=== PATIENT | male | born 1940 | race Caucasian/White ===

== ENCOUNTER 2017-04-16 21:26 | Inpatient (IN) | payer MEDICARE, OTHER ==
[2017-04-16] MEDS ORDERED: Haloperidol Lactate 5 mg/mL 1mL Vial IVP ONE (21:35)
[2017-04-16] MEDS ORDERED: Haloperidol Lactate 5 mg/mL 1mL Vial IM STA (21:48)
[2017-04-16] MEDS ORDERED: Haloperidol Lactate 5 mg/mL 1mL Vial ONE (21:51)
--- NOTE | 2017-04-16 21:55 | ED Physician Chart ---
Chief Complaint/HPI - Patient Information Date Seen:: 04/16/17 Time Seen:: 21:35 Chief Complaint:: COMBATIVE History of Present Illness:: THIS IS A RETIREMENT PATIENT THAT WAS SENT FROM THE RETIREMENT FOR EVALUATION AND TREATMENT BECAUSE OF HIS COMBATIVE ACTIVITY. Allergies:: Allergies Allergy/AdvReac Type Severity Reaction Status Date / Time No Known Allergies Allergy Verified 04/16/17 21:29 Vitals:: Vital Signs - 8 hr 04/16/17 21:29 Temp 97.6 F HR 72 RR 18 BP 117/68 O2 Sat % 94 Historian:: EMS, Medical Records Review:: Nurse's Note Reviewed, Transfer documents Reviewed, Patient unable to respond Review of Systems - Review of Systems General/Constitutional: No fever, No chills, No weight loss, No weakness, No diaphoresis, No edema, No loss of appetite Skin: No skin lesions, No rash, No bruising Head: No headache, No light-headedness Eyes: No loss of vision, No pain, No diplopia ENT: No earache, No nasal drainage, No sore throat, No tinnitus Neck: No neck pain, No swelling, No thyromegaly, No stiffness, No mass noted Cardio Vascular: No chest pain, No palpitations, No PND, No orthopnea, No edema Pulmonary: No SOB, No cough, No sputum, No wheezing GI: No nausea, No vomiting, No diarrhea, No pain, No melena, No hematochezia, No constipation, No hematemesis G/U: No dysuria, No frequency, No hematuria Musculoskeletal: No bone or joint pain, No back pain, No muscle pain Endocrine: No polyuria, No polydipsia Psychiatric: No prior psych history, No depression, No anxiety, No suicidal ideation Hematopoietic: No bruising, No lymphadenopathy Allergic/Immuno: No urticaria, No angioedema Neurological: No syncope, No focal symptoms, No weakness, No paresthesia, No headache, No seizure, No dizziness, No confusion, No vertigo Past Medical History - Past Medical History Obtainable: No Past Medical History: HTN, Arthritis, Dementia Family History: None Social History: Non Smoker, No Alcohol, No Drug Use, Single, Care Facility Surgical History: None Psychiatricy History: Schizophrenia, Dementia Medication: Reviewed Family Medical History - Family Member Mother History Unknown: Yes Physical Exam - Physical Examination General/Constitutional: Awake, Well-developed, well-nourished, Alert, No distress, GCS 15, Non-toxic appearing, Ambulatory Other Gen/Cons comments:: THIS PATIENT IS CONFUSED AND COMBATIVE Head: Atraumatic Eyes: Lids, conjuctiva normal, PERRL, EOMI Skin: Nl inspection, No rash, No skin lesions, No ecchymosis, Well hydrated, No lymphadenopathy ENMT: External ears, nose nl, Nasal exam nl, Lips, teeth, gums nl Neck: Nontender, Full ROM w/o pain, No JVD, No nuchal rigidity, No bruit, No mass, No stridor Respiratory: Nl effort/Exclusion, Clear to Auscultation, No Wheeze/Rhonchi/Rales Cardio Vascular: RRR, No murmur, gallop, rubs, NL S1 S2 GI: No tenderness/rebounding/guarding, No organomegaly, No hernia, Normal BS's, Nondistended, No mass/bruits, No McBurney tenderness : No CVA tenderness Extremities: No tenderness or effusion, Full ROM, normal strength in all extremities, No edema, Normal digits & nails Neuro/Psych: Alert/oriented, DTR's symmetric, Normal sensory exam, Normal motor strength, Judgement/insight normal, Mood normal, Normal gait, No focal deficits Misc: normal gait, Normal back, No paraspinal tenderness Labs/Radiology/EKG Results - Lab Results Results: Abnormal Lab Results 04/16/17 04/16/17 04/16/17 21:50 21:50 21:50 WBC 9.2 RBC 4.97 Hgb 16.3 Hct 48.7 MCV 98.0 MCH 32.8 H MCHC Differential 33.4 RDW 12.9 Plt Count 177 MPV 8.7 Neutrophils (Manual) 40 Lymphocytes 42 Monocytes 10 Eosinophils 6 H Basophils 2 Platelet Estimate ADEQUATE Troponin I 0.01 Triglycerides 187 H Cholesterol 136 LDL Cholesterol Direct 93 HDL Cholesterol 34 Valproic Acid 04/16/17 21:50 WBC RBC Hgb Hct MCV MCH MCHC Differential RDW Plt Count MPV Neutrophils (Manual) Lymphocytes Monocytes Eosinophils Basophils Platelet Estimate Troponin I Triglycerides Cholesterol LDL Cholesterol Direct HDL Cholesterol Valproic Acid 24.0 L - EKG Interpretations EKG Time:: 22:21 Rate & Rhythm: 69 SINUS [place]: LEFT Assessment - Assessment General Assessment: PSYCHOSIS ED Septic Shock - . Is Septic Shock (SBP<90, OR Lactate>4 mmol\L) present?: No - <6hrs of presentation: Vital Signs: Vital Signs - 8 hr 04/16/17 21:29 Temp 97.6 F HR 72 RR 18 BP 117/68 O2 Sat % 94 Reassessment (Disposition) - Reassessment Reassessment Condition:: Unchanged - Diagnosis Diagnosis:: LOW VALPROIC ACID LEVEL DEHYDRATION PSYCHOSIS - Patient Disposition Discharge/Transfer:: Acute Care w/in this hosp Admitting Medical Physician:: Hiram De Jesus Admitting Psych Physician:: Christiano Harper Condition at Disposition:: Unchanged ED Discharge Plan - Patient Disposition Admit/Discharge/Transfer: Acute Care w/in this hosp Condition at Disposition: Unchanged
[2017-04-16 21:59] LABS: HEMATOCRIT 48.7 % (39.0-49.0); HEMOGLOBIN 16.3 gm/dL (12.6-17.4); MEAN CORPUSCULAR HEMOGLOBIN 32.8 pg (27.0-31.0); MEAN CORPUSCULAR HGB CONC 33.4 pg (28.0-36.0); MEAN PLATELET VOLUME 8.7 fl; PLATELET COUNT 177 Th/cmm (150-400); RED BLOOD COUNT 4.97 Mil/cmm (3.80-5.80); RED CELL DISTRIBUTION WIDTH 12.9 % (11.5-20.0); WHITE BLOOD COUNT 9.2 Th/cmm (4.8-10.8)
[2017-04-16 22:19] LABS: CHOLESTEROL 136 mg/dL (<200); TRIGLYCERIDES 187 mg/dL (<150)
[2017-04-16 22:21] LABS: BASOPHIL 2 % (0-3); EOSINOPHIL 6 % (0-5); NEUTROPHILS 40 % (40-80); PLATELET ESTIMATE ADEQUATE (NORMAL); TOTAL CELLS COUNTED 100
[2017-04-16 22:35] LABS: ALB/GLOB RATIO 1.4 (1.0-1.8); ALKALINE PHOSPHATASE 75 U/L (34-104); ANION GAP 14.8 (7.0-16.0); BILIRUBIN,TOTAL 0.4 mg/dL (0.3-1.0); BUN - UREA NITROGEN 16 mg/dL (7-25); BUN/CREATININE RATIO 22.9; CALCIUM SERUM 9.2 mg/dL (8.6-10.3); CARBON DIOXIDE 21.8 mEq/L (21.0-31.0); CHLORIDE 109 mEq/L (98-107); CREATININE - SERUM 0.7 mg/dL (0.7-1.3); GLUCOSE 121 mg/dL (70-105); POTASSIUM SERUM 4.6 mEq/L (3.5-5.1); SGOT 20 U/L (13-39); SGPT/ALT 25 U/L (7-52); SODIUM SERUM 141 mEq/L (136-145)
[2017-04-17] MEDS ORDERED: Pneumococcal Vaccine 0.5 mL Vial IM ONE (03:35)
--- NOTE | 2017-04-17 11:09 | Diagnostic Imaging Report ---
Portable chest x-ray HISTORY: Shortness of breath There is marked cardiomegaly. Atherosclerotic calcination seen in the aorta. No acute focal pulmonary processes. Surgical changes seen within the cervical spine. Arthritic changes noted about the shoulder regions. IMPRESSION: 1. No acute pulmonary processes 2. Cardiomegaly with atherosclerotic vascular changes
[2017-04-17] MEDS ORDERED: Fleet Enema 135 mL RC PRN (12:16)
[2017-04-17] MEDS ORDERED: Magnesium Hydroxide (MOM) 30 mL UDC PO PRN (12:16)
[2017-04-17] MEDS ORDERED: Magnesium Hydroxide (MOM) 30 mL UDC PO SCH (14:00)
[2017-04-18] MEDS ORDERED: POLYETHYLENE GLYCOL 3350 17 GM PACK PO SCH (09:00)
[2017-04-18] MEDS ORDERED: Non-Formulary Item 1 EA (Mirabegron [Myrbetriq] 25 MG) PO SCH (09:00)
== END 2017-04-17 17:32 | DRG 641 ==
LOC: ER 21:26 → MSI 23:00
PROVIDERS: ADMIT Family Medicine; ATTEND Family Medicine
PROC: 3E0234Z Introduction of Serum, Toxoid and Vaccine into Muscle, Percutaneous Approach (ICD-10-PCS; principal; 2017-04-17)
DX: E86.0 Dehydration (principal); F03.90 Unspecified dementia, unspecified severity, without behavioral disturbance, psychotic disturbance, mood disturbance, and anxiety; F20.9 Schizophrenia, unspecified; I10 Essential (primary) hypertension; M19.90 Unspecified osteoarthritis, unspecified site; F29 Unspecified psychosis not due to a substance or known physiological condition; Z23 Encounter for immunization
CPT/HCPCS: 36415-UA; 71010-TC; 80053-TC; 80061-TC; 80164-TC; 84443-TC; 84484-TC; 85007-TC; 85027-TC; 86592-TC; 93005; 96375; J1630; J2060; Z7610

== ENCOUNTER 2017-04-17 17:32 | Inpatient (IN) | payer MEDICARE, OTHER ==
[2017-04-17 18:45] VITALS: BP 118/87
[2017-04-17] MEDS ORDERED: Maalox 30 mL Cup PO PRN (19:55)
[2017-04-17] MEDS ORDERED: Magnesium Hydroxide (MOM) 30 mL UDC PO PRN (19:55)
[2017-04-17] MEDS ORDERED: Fleet Enema 135 mL RC PRN (20:22)
--- NOTE | 2017-04-17 22:04 | History and Physical ---
History of Present Illness - HPI Chief Complaint: ALTERED LEVEL OF CONSCIOUSNESS AND AGITATION. HPI: THE PATIENT IS A 76 YEAR OLD WITH PMH SIGNIFICANT FOR DEMENTIA.DJD,ADMITTED TO MEDICAL FLOOR WITH ACUTE AGITATION.THE PATIENT TRANSFERRED TO MENTAL HEALTH FOR MORE EVALUATION AND TREATMENT. Vital Signs: Last Vital Signs Temp 97.6 F 04/17/17 19:25 Pulse 100 04/17/17 19:25 Resp 20 04/17/17 19:25 BP 118/87 04/17/17 19:25 Pulse Ox 96 04/17/17 19:25 Past Medical History Pulmonary: Report: No Pertinent Hx [employer]: Report: Dementia GI: Report: No Pertinent Hx, Constipation Psych: Report: Anxiety, Psychosis Musculoskeletal: Report: No Pertinent Hx Rheumatologic: Report: No pertinent Hx Infectious Disease: Report: No Pertinent Hx Renal/: Report: Benign Prostatic Enlarg Endocrine: Report: No Pertinent Hx Dermatology: Report: No Pertinent Hx - Past Surgical History Past Surgical History: No pertinent Hx Family Medical History - Family Member Mother History Unknown: Yes Ethnicity: Unknown Living Status: Unknown Hx Family Cancer: (unknown) Hx Family Coronary Artery Disease: (unknown) Hx Family Congestive Heart Failure: (unknown) Hx Family Hypertension: (unknown) Hx Family Stroke: (unknown) Hx Family Diabetes: (unknown) Hx Family Seizures: (unknown) Hx Family Dementia: (unknown) Hx Family AIDS: (unknown) Hx Family COPD: (unknown) Hx Family Hepatitis: (unknown) Hx Family Psychiatric Problems: (unknown) Hx Family Tuberculosis: (unknown) Father History Unknown: Yes Ethnicity: Unknown Living Status: Unknown Hx Family Cancer: (unknown) Hx Family Coronary Artery Disease: (unknown) Hx Family Congestive Heart Failure: (unknown) Hx Family Hypertension: (unknown) Hx Family Stroke: (unknown) Hx Family Diabetes: (unknown) Hx Family Seizures: (unknown) Hx Family Dementia: (unknown) Hx Family AIDS: (unknown) Hx Family COPD: (unknown) Hx Family Hepatitis: (unknown) Hx Family Psychiatric Problems: (unknown) Hx Family Tuberculosis: (unknown) Social History Smoke: No Alcohol: None Drugs: None Lives: [facility] Domestic Violence: Negative Health Maintenance Health Maintenance: Influenza Vaccine, Pneumococcal Vaccine - Medications Home Medications: Home Medication Medication Instructions Recorded Type Acetaminophen [Tylenol] 650 mg PO Q4HR PRN 04/16/17 History Bisacodyl 10 mg RC DAILY PRN 04/16/17 History Cholecalciferol (Vit D3) [Vitamin 1,000 iu PO DAILY 04/16/17 History D3] Clonazepam [Klonopin] 0.5 mg PO BID 04/16/17 History Cyanocobalamin [Vitamin B12] 1,000 mcg PO DAILY 04/16/17 History Dextromethorphan/Quinidine 1 cap PO BID 04/16/17 History [Nuedexta 20mg-10mg] Docusate Sodium [Colace] 100 mg PO BID 04/16/17 History Dutasteride [Avodart] 0.5 mg PO DAILY 04/16/17 History Fleet Enema 1 dose RC Q48HR PRN 04/16/17 History Magnesium Hydroxide [Milk of 30 ml PO HS PRN 04/16/17 History Magnesia] Magnesium Hydroxide [Milk of 30 ml PO Q72HR 04/16/17 History Magnesia] Memantine [Namenda] 10 mg PO BID 04/16/17 History Mirabegron [Myrbetriq] 25 mg PO DAILY 04/16/17 History Polyethylene Glycol 3350 17 gm PO DAILY 04/16/17 History Sennosides [Teresa-Oscar] 8.6 mg PO HS 04/16/17 History Tamsulosin [Flomax] 0.4 mg PO DAILY 04/16/17 History Timolol 0.5% Ophth Soln [Timoptic 1 drop EACH EYE BID 04/16/17 History 0.5% Ophth Soln] Valproic Acid (As Sodium Salt) 250 mg PO DAILY 04/16/17 History [Depakene] Heparin Sodium [Heparin*] 5,000 units SUBQ Q12HR vial 04/17/17 Rx Lorazepam [Ativan] 0.5 mg PO Q4H PRN tab 04/17/17 Rx - Allergies Allergies/Adverse Reactions: Allergies Allergy/AdvReac Type Severity Reaction Status Date / Time No Known Allergies Allergy Verified 04/16/17 21:29 Review of Systems - Review of Systems Constitutional: Report: No Significant Eyes: Report: No Significant ENT: Report: No Significant Respiratory: Report: No Significant Cardiovascular: Report: No Significant Gastrointestinal: Report: Constipation Genitourinary: Report: No Significant Musculoskeletal: Report: No Significant Skin: Report: No Significant Neurological: Report: Confusion Physical Exam - Physical Exam Neck: Report: Within normal limits Cardiovascular Systems: Report: Regular, Rate and Rhythm, no murmurs noted Respiratory: Report: Breath Sounds are within normal limits, Clear to Auscultation of lung [place] Abdomen: Report: Non-tender to palpation Back: Report: Inspection of back is within normal limits. Extremities: Report: Non-tender to palpation. Skin: Report: Color of skin is within normal limits Neuro/Psych: Report: No motor deficit, No sensory deficit, No new focal deficits - Assessment Assessment: 1.BPH. 2.CONSTIPATION. 3.DEMENTIA. 4.AGITATION. - Plan Plan: CONTINUE ON CURRENT MEDICATION AND DIET..THE PATIENT IS CLEAR FOR ACTIVITY.
--- NOTE | 2017-04-18 00:56 | Admit Criteria Form ---
Admit Criteria Forms - Admit Criteria Diagnosis: PSYCHIATRIC DISORDERS (Place 'X' for any and all applicable criteria): Ongoing inpatient care may be needed for 1 or more of the following(1)(2)(3)(4)( 6)(7)(8): [ ]I. Danger to self or others not manageable at lower level of care. [ ]II. Grave disability (eg, inability to perform self care necessary at lower level of care) [X ]III. Agitation or inappropriate behavior interfering with care for primary condition (eg, attempting to discontinue lines or drains prematurely, unable to cooperate with respiratory care) [ ]IV. Severe disability or disorder indicated by ALL of the following: [ ]a) Severe behavioral health disorder-related symptoms or condition indicated by 1 or more of the following: [ ]i) Severe problem with cognition, memory, judgment, or impulse control [ ]ii) Severe clinical manifestations (eg, hallucinations, delusions, other acute psychotic symptoms, duane, extreme agitation or anxiety) [ ]b) Patient management at lower level of care is not feasible until acute intervention or modification is initiated. Extended stay beyond goal length of stay for the primary condition may be needed until ALLof the following are present(1)(2)(3)(4)(722)(23): [ ]a) Danger to self or others is absent or manageable at lower level of care [ ]b) Behavior crisis management, including physical or chemical restraints, is required and is not available at a lower level of care. [ ]c) Behavioral symptoms (e.g., agitation, somnolence, inappropriate behavior) are present, and are not manageable at a lower level of care. [ ]d) Patient cannot understand follow-up treatment and crisis plan. [ ]e) Provider and supports are sufficiently available at lower level of care. [ ]f) Patient can participate (e.g., verify absence of plan for harm) and is in needed of monitoring. The original [facility] [employer] content created by [facility] [employer] has been revised. The portions of the content which have been revised are identified through the use of italic text or in bold, and [facility] [employer] has neither reviewed nor approved the modified material. All other unmodified content is copyright [facility] [employer]. Please see references footnoted in the original [facility] edition 2017 Admit Criteria Met?: Yes
[2017-04-18] MEDS: Dextromethorphan/Quinidine 20mg/10mg Cap PO SCH ×2 (09:13→17:38)
[2017-04-18] MEDS: Multivitamin Tab PO SCH (09:13)
--- NOTE | 2017-04-18 20:06 | Internal Medicine Prog Note ---
Internal Medicine Subjective - Subjective Service Date: 04/18/17 Patient seen and examined:: with staff Patient is:: awake, confused Per staff patient has:: no adverse event Internal Medicine Objective - Physical Exam Vitals and I&O: Vital Signs Temp 97.9 F 04/18/17 14:00 Pulse 68 04/18/17 14:00 Resp 20 04/18/17 14:00 BP 150/70 04/18/17 14:00 Pulse Ox 98 04/18/17 14:00 Intake & Output 04/18/17 04/18/17 04/19/17 06:59 18:59 06:59 Intake Total 60 240 Balance 60 240 Intake: Oral 60 240 Other: # Voids 1 3 # Bowel Movements 0 1 Active Medications: Current Medications Acetaminophen (Tylenol) 650 mg PO Q4HR PRN PRN Reason: Mild Pain / Temp above 100 Stop: 06/16/17 19:54 Al Hydrox/Mg Hydrox/Simethicone (Maalox) 30 ml PO Q4HR PRN PRN Reason: GI DISTRESS Stop: 06/16/17 19:54 Bisacodyl (Dulcolax 10 Mg Supp) 10 mg RC DAILY PRN PRN Reason: Constipation Stop: 06/16/17 20:14 Cholecalciferol (Vitamin D3) 1,000 iu PO DAILY [facility] Stop: 06/17/17 08:59 Last Admin: 04/18/17 09:13 Dose: 1,000 iu Clonazepam (Klonopin) 0.5 mg PO BID LV PRN Reason: Protocol Stop: 06/17/17 08:59 Last Admin: 04/18/17 17:38 Dose: 0.5 mg Cyanocobalamin (Vitamin B12) 1,000 mcg PO DAILY LV Stop: 06/17/17 08:59 Last Admin: 04/18/17 09:13 Dose: 1,000 mcg Dextromethorphan/Quinidine (Nuedexta 20mg-10mg) 1 cap PO BID LV Stop: 06/17/17 08:59 Last Admin: 04/18/17 17:38 Dose: 1 cap Docusate Sodium (Colace) 100 mg PO BID LV Stop: 06/17/17 08:59 Last Admin: 04/18/17 17:38 Dose: 100 mg Dutasteride (Avodart) 0.5 mg PO DAILY LV PRN Reason: Protocol Stop: 06/17/17 08:59 Last Admin: 04/18/17 09:17 Dose: Not Given Lorazepam (Ativan) 0.5 mg PO Q4HR PRN; Protocol PRN Reason: Anxiety Stop: 05/17/17 19:54 Magnesium Hydroxide (Milk Of Magnesia) 30 ml PO HS PRN PRN Reason: Constipation Memantine (Namenda) 10 mg PO BID LV Stop: 06/16/17 20:29 Last Admin: 04/18/17 17:38 Dose: 10 mg Multivitamins/Vitamin C (Theragran) 1 tab PO DAILY LV Stop: 06/17/17 08:59 Last Admin: 04/18/17 09:13 Dose: 1 tab Senna (Senna) 8.6 mg PO HS LV Stop: 06/16/17 20:59 Last Admin: 04/17/17 22:02 Dose: Not Given Sodium Phosphate (Fleet Enema) 135 ml RC PRN PRN PRN Reason: Constipation Stop: 06/16/17 20:21 Tamsulosin HCl (Flomax) 0.4 mg PO DAILY LV Stop: 06/17/17 08:59 Last Admin: 04/18/17 09:13 Dose: 0.4 mg Timolol Maleate (Timoptic 0.5% Oph Soln) 1 drop EACH EYE BID [facility] Stop: 06/17/17 08:59 Last Admin: 04/18/17 19:05 Dose: Not Given Valproate Sodium (Depakene) 250 mg PO DAILY LV PRN Reason: Protocol Stop: 06/17/17 08:59 Last Admin: 04/18/17 09:13 Dose: 250 mg Zolpidem Tartrate (Ambien) 5 mg PO HS PRN PRN Reason: Insomnia Stop: 06/16/17 19:54 General: weak, demented HEENT: NC/AT, PERRLA, EOMI Neck: Supple, No JVD, No thyromegaly Lungs: CTAB Cardiovascular: RRR, Normal S1, Normal S2, without murmur Abdomen: non-tender, non-distended Extremities: clear Neurological: no change Internal Medicine Assmt/Plan - Assessment Assessment: 1.BPH. 2.CONSTIPATION. 3.DEMENTIA. 4.AGITATION. - Plan Plan: CONTINUE ON CURRENT MEDICATION AND DIET.
[2017-04-19] MEDS: Multivitamin Tab PO SCH (10:10)
[2017-04-19] MEDS: Dextromethorphan/Quinidine 20mg/10mg Cap PO SCH ×2 (10:10→17:32)
--- NOTE | 2017-04-19 15:53 | Internal Medicine Prog Note ---
Internal Medicine Subjective - Subjective Service Date: 04/19/17 Patient seen and examined:: with staff Patient is:: awake, confused Per staff patient has:: no adverse event Internal Medicine Objective - Physical Exam Vitals and I&O: Vital Signs Temp 97.6 F 04/19/17 06:37 Pulse 74 04/19/17 06:37 Resp 19 04/19/17 06:37 BP 130/68 04/19/17 06:37 Pulse Ox 96 04/19/17 06:37 Intake & Output 04/18/17 04/19/17 04/19/17 18:59 06:59 18:59 Intake Total 240 120 Balance 240 120 Intake: Oral 240 120 Other: # Voids 3 3 # Bowel Movements 1 Active Medications: Current Medications Acetaminophen (Tylenol) 650 mg PO Q4HR PRN PRN Reason: Mild Pain / Temp above 100 Stop: 06/16/17 19:54 Al Hydrox/Mg Hydrox/Simethicone (Maalox) 30 ml PO Q4HR PRN PRN Reason: GI DISTRESS Stop: 06/16/17 19:54 Bisacodyl (Dulcolax 10 Mg Supp) 10 mg RC DAILY PRN PRN Reason: Constipation Stop: 06/16/17 20:14 Cholecalciferol (Vitamin D3) 1,000 iu PO DAILY [facility] Stop: 06/17/17 08:59 Last Admin: 04/19/17 10:11 Dose: 1,000 iu Clonazepam (Klonopin) 0.5 mg PO BID LV PRN Reason: Protocol Stop: 06/17/17 08:59 Last Admin: 04/19/17 10:10 Dose: 0.5 mg Cyanocobalamin (Vitamin B12) 1,000 mcg PO DAILY LV Stop: 06/17/17 08:59 Last Admin: 04/19/17 10:10 Dose: 1,000 mcg Dextromethorphan/Quinidine (Nuedexta 20mg-10mg) 1 cap PO BID LV Stop: 06/17/17 08:59 Last Admin: 04/19/17 10:10 Dose: 1 cap Docusate Sodium (Colace) 100 mg PO BID LV Stop: 06/17/17 08:59 Last Admin: 04/19/17 10:10 Dose: 100 mg Dutasteride (Avodart) 0.5 mg PO DAILY LV PRN Reason: Protocol Stop: 06/17/17 08:59 Last Admin: 04/19/17 11:13 Dose: 0.5 mg Lorazepam (Ativan) 0.5 mg PO Q4HR PRN; Protocol PRN Reason: Anxiety Stop: 05/17/17 19:54 Last Admin: 04/18/17 20:53 Dose: 0.5 mg Magnesium Hydroxide (Milk Of Magnesia) 30 ml PO HS PRN PRN Reason: Constipation Memantine (Namenda) 10 mg PO BID LV Stop: 06/16/17 20:29 Last Admin: 04/19/17 10:11 Dose: 10 mg Multivitamins/Vitamin C (Theragran) 1 tab PO DAILY LV Stop: 06/17/17 08:59 Last Admin: 04/19/17 10:10 Dose: 1 tab Olanzapine (Zyprexa) 2.5 mg PO BID LV PRN Reason: Protocol Stop: 06/18/17 08:59 Last Admin: 04/19/17 10:10 Dose: 2.5 mg Senna (Senna) 8.6 mg PO HS LV Stop: 06/16/17 20:59 Last Admin: 04/18/17 20:53 Dose: 8.6 mg Sodium Phosphate (Fleet Enema) 135 ml RC PRN PRN PRN Reason: Constipation Stop: 06/16/17 20:21 Tamsulosin HCl (Flomax) 0.4 mg PO DAILY LV Stop: 06/17/17 08:59 Last Admin: 04/19/17 10:11 Dose: 0.4 mg Timolol Maleate (Timoptic 0.5% Ophth Soln) 1 drop EACH EYE BID LV Stop: 06/17/17 08:59 Last Admin: 04/19/17 11:13 Dose: Not Given Valproate Sodium (Depakene) 250 mg PO DAILY LV PRN Reason: Protocol Stop: 06/17/17 08:59 Last Admin: 04/19/17 10:09 Dose: 250 mg Zolpidem Tartrate (Ambien) 5 mg PO HS PRN PRN Reason: Insomnia Stop: 06/16/17 19:54 General: weak, demented HEENT: NC/AT, PERRLA, EOMI Neck: Supple, No JVD, No thyromegaly Lungs: CTAB Cardiovascular: RRR, Normal S1, Normal S2, without murmur Abdomen: non-tender, non-distended Extremities: clear Neurological: no change - Procedures Procedures: Procedures Procedure Code Date INTRODUCTION OF SERUM/TOX/VACCINE INTO MUSCLE, PERC APPROACH [id number] 04/16/17 Internal Medicine Assmt/Plan - Assessment Assessment: 1.BPH. 2.CONSTIPATION. 3.DEMENTIA. 4.AGITATION. - Plan Plan: CONTINUE ON CURRENT MEDICATION AND DIET.
[2017-04-20] MEDS: Dextromethorphan/Quinidine 20mg/10mg Cap PO SCH ×2 (08:22→16:41)
[2017-04-20] MEDS: Multivitamin Tab PO SCH (08:47)
--- NOTE | 2017-04-20 17:51 | Internal Medicine Prog Note ---
Internal Medicine Subjective - Subjective Patient is:: awake, confused Per staff patient has:: no adverse event Internal Medicine Objective - Physical Exam Vitals and I&O: Vital Signs Temp 97.6 F 04/20/17 14:00 Pulse 65 04/20/17 14:00 Resp 20 04/20/17 14:00 BP 125/67 04/20/17 14:00 Pulse Ox 98 04/20/17 14:00 Intake & Output 04/19/17 04/20/17 04/20/17 18:59 06:59 18:59 Intake Total 960 120 Balance 960 120 Weight (lbs) 66.406 kg Intake: Oral 960 120 Other: # Voids 3 3 # Bowel Movements 1 Active Medications: Current Medications Acetaminophen (Tylenol) 650 mg PO Q4HR PRN PRN Reason: Mild Pain / Temp above 100 Stop: 06/16/17 19:54 Al Hydrox/Mg Hydrox/Simethicone (Maalox) 30 ml PO Q4HR PRN PRN Reason: GI DISTRESS Stop: 06/16/17 19:54 Bisacodyl (Dulcolax 10 Mg Supp) 10 mg RC DAILY PRN PRN Reason: Constipation Stop: 06/16/17 20:14 Cholecalciferol (Vitamin D3) 1,000 iu PO DAILY [facility] Stop: 06/17/17 08:59 Last Admin: 04/20/17 08:22 Dose: 1,000 iu Clonazepam (Klonopin) 0.5 mg PO BID LV PRN Reason: Protocol Stop: 06/17/17 08:59 Last Admin: 04/20/17 16:41 Dose: 0.5 mg Cyanocobalamin (Vitamin B12) 1,000 mcg PO DAILY LV Stop: 06/17/17 08:59 Last Admin: 04/20/17 08:21 Dose: 1,000 mcg Dextromethorphan/Quinidine (Nuedexta 20mg-10mg) 1 cap PO BID [facility] Stop: 06/17/17 08:59 Last Admin: 04/20/17 16:41 Dose: 1 cap Docusate Sodium (Colace) 100 mg PO BID LV Stop: 06/17/17 08:59 Last Admin: 04/20/17 16:41 Dose: 100 mg Dutasteride (Avodart) 0.5 mg PO DAILY [facility] PRN Reason: Protocol Stop: 06/17/17 08:59 Last Admin: 04/20/17 08:21 Dose: 0.5 mg Lorazepam (Ativan) 0.5 mg PO Q4HR PRN; Protocol PRN Reason: Anxiety Stop: 05/17/17 19:54 Last Admin: 04/18/17 20:53 Dose: 0.5 mg Magnesium Hydroxide (Milk Of Magnesia) 30 ml PO HS PRN PRN Reason: Constipation Memantine (Namenda) 10 mg PO BID LV Stop: 06/16/17 20:29 Last Admin: 04/20/17 16:42 Dose: 10 mg Multivitamins/Vitamin C (Theragran) 1 tab PO DAILY [facility] Stop: 06/17/17 08:59 Last Admin: 04/20/17 08:47 Dose: 1 tab Olanzapine (Zyprexa) 2.5 mg PO BID LV PRN Reason: Protocol Stop: 06/18/17 08:59 Last Admin: 04/20/17 16:42 Dose: 2.5 mg Senna (Senna) 8.6 mg PO HS LV Stop: 06/16/17 20:59 Last Admin: 04/19/17 20:20 Dose: Not Given Sodium Phosphate (Fleet Enema) 135 ml RC PRN PRN PRN Reason: Constipation Stop: 06/16/17 20:21 Tamsulosin HCl (Flomax) 0.4 mg PO DAILY [facility] Stop: 06/17/17 08:59 Last Admin: 04/20/17 09:17 Dose: 0.4 mg Timolol Maleate (Timoptic 0.5% Ophth Soln) 1 drop EACH EYE BID [facility] Stop: 06/17/17 08:59 Last Admin: 04/20/17 16:42 Dose: Not Given Valproate Sodium (Depakene) 250 mg PO DAILY LV PRN Reason: Protocol Stop: 06/17/17 08:59 Last Admin: 04/20/17 08:21 Dose: 250 mg Zolpidem Tartrate (Ambien) 5 mg PO HS PRN PRN Reason: Insomnia Stop: 06/16/17 19:54 General: weak, demented HEENT: NC/AT, PERRLA, EOMI Neck: Supple, No JVD, No thyromegaly Lungs: CTAB Cardiovascular: RRR, Normal S1, Normal S2, without murmur Abdomen: non-tender, non-distended Extremities: clear Neurological: no change - Procedures Procedures: Procedures Procedure Code Date INTRODUCTION OF SERUM/TOX/VACCINE INTO MUSCLE, PERC APPROACH [id number] 04/16/17 Internal Medicine Assmt/Plan - Assessment Assessment: 1.BPH. 2.CONSTIPATION. 3.DEMENTIA. 4.AGITATION. - Plan Plan: CONTINUE ON CURRENT MEDICATION AND DIET. Nutritional Asmnt/Malnutr-PDOC - Dietary Evaluation Malnutrition Findings (Please click <Entered> for more info): Nutritional Asmnt/Malnutrition Start: 04/20/17 15: 55 Text: Status: Complete Freq: Document 04/20/17 15:55 GSUN (Rec: 04/20/17 16:14 GSUN [id number]) Nutritional Asmnt/Malnutrition Patient General Information Nutritional Screening Moderate Risk Screening Diagnosis BPH, dementia, agitation, constipation Pertinent Medical Hx/Surgical Hx Dementia, DJD, constipation, anxiety, psychosis, benign prostatic enlarg Subjective Information 76 year old male from SNF, transfered from [facility]. Pt seen in bed responding to internal stimuli, Macedonian speaking however confused, moving extremities. Pt is unable to self feed, but noted with good appetite when assisted. PO intake 100% of meals yesterday. Spoke to DESIGN ENGINEERING MANAGER at bedside, DESIGN ENGINEERING MANAGER stated pt ate most of breakfast today, no difficulties noted. None to mild fat/muscle wasting noted. Pt is edentulous. Current Diet Order/ Nutrition Support Regular, PERFECTO Pertinent Medications Vitamin D3, Vitamin B12, Colace, MOM, Theragran, Senna, Fleet Enema Pertinent Labs No labs Nutritional Hx/Data Height 1.7 m Height (Calculated Centimeters) 170.2 Current Weight (lbs) 66.406 kg Weight (Calculated Kilograms) 66.4 Weight (Calculated Grams) 51349.9 [place] Body Weight 148 Weight Status Approriate GI Symptoms Usual diet at home Paty Wellness: regular, PERFECTO Skin Integrity/Comment: Jesus 15. Skin intact. Current %PO Good (75-100%) Estimated Nutritional Goals BEE in Kcals: Using Current wt Calories/Kcals/Kg CBW 146.4lb/66.5kg Kcals Calculated 1663-1995kcal (25-30kca/kg) Protein: Using Current wt Protein Calculated 67g (1g/kg) Fluid: ml 1663-1995ml (1ml/kcal) Nutritional Problem 1. Problem Problem Self feeding difficulty related to Etiology cognition/dementia aeb Signs/Symptoms: pt requires total assist, noted forgetful about food Intervention/Recommendation Comments 1. Continue with current diet order. Expected Outcomes/Goals Expected Outcomes/Goals 1. PO intake to meet at least 75% of estimated nutritional needs.
--- NOTE | 2017-04-20 22:53 | Progress Notes ---
DATE: 04/20/2017 SUBJECTIVE: Chart reviewed and the patient interviewed. Also discussed the patient's condition with the staff and reviewed records and labs. The patient continues rambling and he still continues to talk to himself and seems to be severely confused and easily agitated. The patient also is still having disorganized thoughts. The patient also is still restless and he still has episodes of being aggressive with the staff. Otherwise, the patient is easier to redirect him and he seems to be less aggressive. The patient is refusing to take his medications for no apparent reason and discussed with the patient benefits, side effects, and alternatives of medication, but he was not able to understand or to agree to take the medications for no apparent reason. ASSESSMENT: The patient is still psychotic and agitated. TREATMENT PLAN: We will continue monitoring his behavior and his condition closely. Also, continue to work on his compliance with medications and we will continue to follow up. JOB# [id number]
[2017-04-21] MEDS: Multivitamin Tab PO SCH (09:26)
[2017-04-21] MEDS: Dextromethorphan/Quinidine 20mg/10mg Cap PO SCH ×2 (09:27→16:30)
--- NOTE | 2017-04-21 20:39 | Progress Notes ---
DATE: 04/21/2017 SUBJECTIVE: Chart reviewed and the patient interviewed. Also discussed the patient's condition with the staff and reviewed records and labs. The patient seems to be slightly sedated this morning, but he still seems to be disoriented and is still confused. The patient also has been spitting his medications. The patient also did not answer any of my questions today because of confusion and his agitation, as well as his forgetfulness and inability to carry on coherent conversation. The patient also is still interacting minimally with others. Otherwise, the patient is compliant with taking his medications with no side effects of medications. ASSESSMENT: The patient is still agitated and confused. TREATMENT PLAN: We will continue monitoring his behavior and his medications. Also, we will continue working on behavioral modification and adjusting psychotropic medications. JOB# [id number]
[2017-04-22] MEDS: Dextromethorphan/Quinidine 20mg/10mg Cap PO SCH ×2 (10:00→17:01)
[2017-04-22] MEDS: Multivitamin Tab PO SCH (10:00)
--- NOTE | 2017-04-22 12:04 | Progress Notes ---
DATE: 04/22/2017 SUBJECTIVE: Chart reviewed and the patient interviewed. Also discussed the patient's condition with the staff and reviewed records and labs. The patient continued to be confused and is still agitated and in irritable mood. The patient also is suspicious and paranoid. The patient did not answer questions and kept his eyes closed and seems to be actively responding. The patient also gets aggressive with staff and resisting care. ASSESSMENT: The patient is still psychotic. TREATMENT PLAN: We will continue monitoring his behavior and his condition closely. Also, continue to work on his anger and his irritability and continue to follow up. JOB# [id number]
[2017-04-23] MEDS: Multivitamin Tab PO SCH (09:57)
[2017-04-23] MEDS: Dextromethorphan/Quinidine 20mg/10mg Cap PO SCH ×2 (09:57→18:02)
--- NOTE | 2017-04-23 10:19 | Progress Notes ---
DATE: 04/23/2017 Case was discussed with staff of the patient, reviewed records. Covering for Dr. Harper. SUBJECTIVE: This is a 76-year-old male who was admitted on 04/17/2017. The patient is demented, confused, diagnosed with psychosis, NOS. The patient had episodes of crying, asking for help. Continues to be unpredictable, impulsive, unable to make safe plan for self-care. He is on 1 tablet twice a day and olanzapine 2.5 mg twice daily that was started on the . No sedation, no nausea, no extrapyramidal symptoms. Also, is on Depakote 250 mg daily. We will continue to work with the patient in group therapy, milieu therapy, adjust the medication as needed. JOB# [id number]
--- NOTE | 2017-04-23 18:04 | Internal Medicine Prog Note ---
Internal Medicine Subjective - Subjective Service Date: 04/23/17 Patient seen and examined:: without staff Patient is:: awake, confused Per staff patient has:: no adverse event Internal Medicine Objective - Physical Exam Vitals and I&O: Vital Signs Temp 98.2 F 04/23/17 06:24 Pulse 66 04/23/17 06:24 Resp 19 04/23/17 06:24 BP 140/72 04/23/17 06:24 Pulse Ox 95 04/23/17 06:24 Intake & Output 04/22/17 04/23/17 04/23/17 18:59 06:59 18:59 Intake Total 800 Balance 800 Intake: Oral 800 Other: # Voids 4 # Bowel Movements 1 Active Medications: Current Medications Acetaminophen (Tylenol) 650 mg PO Q4HR PRN PRN Reason: Mild Pain / Temp above 100 Stop: 06/16/17 19:54 Al Hydrox/Mg Hydrox/Simethicone (Maalox) 30 ml PO Q4HR PRN PRN Reason: GI DISTRESS Stop: 06/16/17 19:54 Bisacodyl (Dulcolax 10 Mg Supp) 10 mg RC DAILY PRN PRN Reason: Constipation Stop: 06/16/17 20:14 Cholecalciferol (Vitamin D3) 1,000 iu PO DAILY [facility] Stop: 06/17/17 08:59 Last Admin: 04/23/17 09:57 Dose: 1,000 iu Clonazepam (Klonopin) 0.5 mg PO BID LV PRN Reason: Protocol Stop: 06/17/17 08:59 Last Admin: 04/23/17 09:57 Dose: 0.5 mg Cyanocobalamin (Vitamin B12) 1,000 mcg PO DAILY [facility] Stop: 06/17/17 08:59 Last Admin: 04/23/17 09:57 Dose: 1,000 mcg Dextromethorphan/Quinidine (Nuedexta 20mg-10mg) 1 cap PO BID [facility] Stop: 06/17/17 08:59 Last Admin: 04/23/17 09:57 Dose: 1 cap Docusate Sodium (Colace) 100 mg PO BID [facility] Stop: 06/17/17 08:59 Last Admin: 04/23/17 09:57 Dose: Not Given Dutasteride (Avodart) 0.5 mg PO DAILY [facility] PRN Reason: Protocol Stop: 06/17/17 08:59 Last Admin: 04/23/17 10:09 Dose: 0.5 mg Lorazepam (Ativan) 0.5 mg PO Q4HR PRN; Protocol PRN Reason: Anxiety Stop: 05/17/17 19:54 Last Admin: 04/22/17 14:21 Dose: 0.5 mg Magnesium Hydroxide (Milk Of Magnesia) 30 ml PO HS PRN PRN Reason: Constipation Memantine (Namenda) 10 mg PO BID LV Stop: 06/16/17 20:29 Last Admin: 04/23/17 09:57 Dose: 10 mg Multivitamins/Vitamin C (Theragran) 1 tab PO DAILY [facility] Stop: 06/17/17 08:59 Last Admin: 04/23/17 09:57 Dose: 1 tab Olanzapine (Zyprexa) 2.5 mg PO BID LV PRN Reason: Protocol Stop: 06/18/17 08:59 Last Admin: 04/23/17 09:56 Dose: 2.5 mg Senna (Senna) 8.6 mg PO HS LV Stop: 06/16/17 20:59 Last Admin: 04/22/17 20:42 Dose: Not Given Sodium Phosphate (Fleet Enema) 135 ml RC PRN PRN PRN Reason: Constipation Stop: 06/16/17 20:21 Tamsulosin HCl (Flomax) 0.4 mg PO DAILY [facility] Stop: 06/17/17 08:59 Last Admin: 04/23/17 09:56 Dose: 0.4 mg Timolol Maleate (Timoptic 0.5% Ophth Soln) 1 drop EACH EYE BID [facility] Stop: 06/17/17 08:59 Last Admin: 04/23/17 12:34 Dose: Not Given Valproate Sodium (Depakene) 250 mg PO DAILY [facility] PRN Reason: Protocol Stop: 06/17/17 08:59 Last Admin: 04/23/17 09:56 Dose: 250 mg Zolpidem Tartrate (Ambien) 5 mg PO HS PRN PRN Reason: Insomnia Stop: 06/16/17 19:54 General: weak, demented HEENT: NC/AT, PERRLA, EOMI Neck: Supple, No JVD, No thyromegaly Lungs: CTAB Cardiovascular: RRR, Normal S1, Normal S2, without murmur Abdomen: non-tender, non-distended Extremities: clear Neurological: no change - Procedures Procedures: Procedures Procedure Code Date INTRODUCTION OF SERUM/TOX/VACCINE INTO MUSCLE, PERC APPROACH [id number] 04/16/17 Internal Medicine Assmt/Plan - Assessment Assessment: 1.BPH. 2.CONSTIPATION. 3.DEMENTIA. - Plan Plan: CONTINUE ON CURRENT MEDICATION AND DIET. Nutritional Asmnt/Malnutr-PDOC - Dietary Evaluation Malnutrition Findings (Please click <Entered> for more info): Nutritional Asmnt/Malnutrition Start: 04/20/17 15: 55 Text: Status: Complete Freq: Document 04/20/17 15:55 GSUN (Rec: 04/20/17 16:14 GSUN [id number]) Nutritional Asmnt/Malnutrition Patient General Information Nutritional Screening Moderate Risk Screening Diagnosis BPH, dementia, agitation, constipation Pertinent Medical Hx/Surgical Hx Dementia, DJD, constipation, anxiety, psychosis, benign prostatic enlarg Subjective Information 76 year old male from SNF, transfered from [facility]. Pt seen in bed responding to internal stimuli, Cypriot speaking however confused, moving extremities. Pt is unable to self feed, but noted with good appetite when assisted. PO intake 100% of meals yesterday. Spoke to SUPPORT ARCHITECT at bedside, SUPPORT ARCHITECT stated pt ate most of breakfast today, no difficulties noted. None to mild fat/muscle wasting noted. Pt is edentulous. Current Diet Order/ Nutrition Support Regular, PERFECTO Pertinent Medications Vitamin D3, Vitamin B12, Colace, MOM, Theragran, Senna, Fleet Enema Pertinent Labs No labs Nutritional Hx/Data Height 1.7 m Height (Calculated Centimeters) 170.2 Current Weight (lbs) 66.406 kg Weight (Calculated Kilograms) 66.4 Weight (Calculated Grams) 63951.9 [place] Body Weight 148 Weight Status Approriate GI Symptoms Usual diet at home Paty Wellness: regular, PERFECTO Skin Integrity/Comment: Jesus 15. Skin intact. Current %PO Good (75-100%) Estimated Nutritional Goals BEE in Kcals: Using Current wt Calories/Kcals/Kg CBW 146.4lb/66.5kg Kcals Calculated 1663-1995kcal (25-30kca/kg) Protein: Using Current wt Protein Calculated 67g (1g/kg) Fluid: ml 1663-1995ml (1ml/kcal) Nutritional Problem 1. Problem Problem Self feeding difficulty related to Etiology cognition/dementia aeb Signs/Symptoms: pt requires total assist, noted forgetful about food Intervention/Recommendation Comments 1. Continue with current diet order. Expected Outcomes/Goals Expected Outcomes/Goals 1. PO intake to meet at least 75% of estimated nutritional needs.
[2017-04-24] MEDS: Dextromethorphan/Quinidine 20mg/10mg Cap PO SCH ×2 (09:24→17:46)
[2017-04-24] MEDS: Multivitamin Tab PO SCH (09:24)
--- NOTE | 2017-04-24 20:26 | Internal Medicine Prog Note ---
Internal Medicine Subjective - Subjective Service Date: 04/24/17 Patient is:: awake, confused Per staff patient has:: no adverse event Internal Medicine Objective - Physical Exam Vitals and I&O: Vital Signs Temp 97.7 F 04/24/17 06:10 Pulse 65 04/24/17 06:10 Resp 20 04/24/17 06:10 BP 148/73 04/24/17 06:10 Pulse Ox 98 04/24/17 06:10 Active Medications: Current Medications Acetaminophen (Tylenol) 650 mg PO Q4HR PRN PRN Reason: Mild Pain / Temp above 100 Stop: 06/16/17 19:54 Al Hydrox/Mg Hydrox/Simethicone (Maalox) 30 ml PO Q4HR PRN PRN Reason: GI DISTRESS Stop: 06/16/17 19:54 Bisacodyl (Dulcolax 10 Mg Supp) 10 mg RC DAILY PRN PRN Reason: Constipation Stop: 06/16/17 20:14 Cholecalciferol (Vitamin D3) 1,000 iu PO DAILY [facility] Stop: 06/17/17 08:59 Last Admin: 04/24/17 09:24 Dose: 1,000 iu Clonazepam (Klonopin) 0.5 mg PO BID LV PRN Reason: Protocol Stop: 06/17/17 08:59 Last Admin: 04/24/17 17:46 Dose: 0.5 mg Cyanocobalamin (Vitamin B12) 1,000 mcg PO DAILY [facility] Stop: 06/17/17 08:59 Last Admin: 04/24/17 09:24 Dose: 1,000 mcg Dextromethorphan/Quinidine (Nuedexta 20mg-10mg) 1 cap PO BID LV Stop: 06/17/17 08:59 Last Admin: 04/24/17 17:46 Dose: 1 cap Docusate Sodium (Colace) 100 mg PO BID LV Stop: 06/17/17 08:59 Last Admin: 04/24/17 17:46 Dose: Not Given Dutasteride (Avodart) 0.5 mg PO DAILY LV PRN Reason: Protocol Stop: 06/17/17 08:59 Last Admin: 04/24/17 09:25 Dose: 0.5 mg Lorazepam (Ativan) 0.5 mg PO Q4HR PRN; Protocol PRN Reason: Anxiety Stop: 05/17/17 19:54 Last Admin: 04/23/17 20:24 Dose: 0.5 mg Magnesium Hydroxide (Milk Of Magnesia) 30 ml PO HS PRN PRN Reason: Constipation Memantine (Namenda) 10 mg PO BID LV Stop: 06/16/17 20:29 Last Admin: 04/24/17 17:46 Dose: 10 mg Multivitamins/Vitamin C (Theragran) 1 tab PO DAILY [facility] Stop: 06/17/17 08:59 Last Admin: 04/24/17 09:24 Dose: 1 tab Olanzapine (Zyprexa) 2.5 mg PO BID LV PRN Reason: Protocol Stop: 06/18/17 08:59 Last Admin: 04/24/17 17:46 Dose: 2.5 mg Senna (Senna) 8.6 mg PO HS LV Stop: 06/16/17 20:59 Last Admin: 04/23/17 20:24 Dose: 8.6 mg Sodium Phosphate (Fleet Enema) 135 ml RC PRN PRN PRN Reason: Constipation Stop: 06/16/17 20:21 Tamsulosin HCl (Flomax) 0.4 mg PO DAILY LV Stop: 06/17/17 08:59 Last Admin: 04/24/17 09:24 Dose: 0.4 mg Timolol Maleate (Timoptic 0.5% Oph Soln) 1 drop EACH EYE BID [facility] Stop: 06/17/17 08:59 Last Admin: 04/24/17 17:46 Dose: Not Given Valproate Sodium (Depakene) 250 mg PO DAILY LV PRN Reason: Protocol Stop: 06/17/17 08:59 Last Admin: 04/24/17 09:24 Dose: 250 mg Zolpidem Tartrate (Ambien) 5 mg PO HS PRN PRN Reason: Insomnia Stop: 06/16/17 19:54 General: weak, demented HEENT: NC/AT, PERRLA, EOMI Neck: Supple, No JVD, No thyromegaly Lungs: CTAB Cardiovascular: RRR, Normal S1, Normal S2, without murmur Abdomen: non-tender, non-distended Extremities: clear Neurological: no change - Procedures Procedures: Procedures Procedure Code Date INTRODUCTION OF SERUM/TOX/VACCINE INTO MUSCLE, PERC APPROACH [id number] 04/16/17 Internal Medicine Assmt/Plan - Assessment Assessment: 1.BPH. 2.CONSTIPATION. 3.DEMENTIA. - Plan Plan: CONTINUE ON CURRENT MEDICATION AND DIET. Nutritional Asmnt/Malnutr-PDOC - Dietary Evaluation Malnutrition Findings (Please click <Entered> for more info): Nutritional Asmnt/Malnutrition Start: 04/20/17 15: 55 Text: Status: Complete Freq: Document 04/20/17 15:55 GSUN (Rec: 04/20/17 16:14 GSUN [email or web address]) Nutritional Asmnt/Malnutrition Patient General Information Nutritional Screening Moderate Risk Screening Diagnosis BPH, dementia, agitation, constipation Pertinent Medical Hx/Surgical Hx Dementia, DJD, constipation, anxiety, psychosis, benign prostatic enlarg Subjective Information 76 year old male from SNF, transfered from [facility]. Pt seen in bed responding to internal stimuli, Albanian speaking however confused, moving extremities. Pt is unable to self feed, but noted with good appetite when assisted. PO intake 100% of meals yesterday. Spoke to STORY TELLER at bedside, STORY TELLER stated pt ate most of breakfast today, no difficulties noted. None to mild fat/muscle wasting noted. Pt is edentulous. Current Diet Order/ Nutrition Support Regular, PERFECTO Pertinent Medications Vitamin D3, Vitamin B12, Colace, MOM, Theragran, Senna, Fleet Enema Pertinent Labs No labs Nutritional Hx/Data Height 1.7 m Height (Calculated Centimeters) 170.2 Current Weight (lbs) 66.406 kg Weight (Calculated Kilograms) 66.4 Weight (Calculated Grams) 77711.9 [place] Body Weight 148 Weight Status Approriate GI Symptoms Usual diet at home Paty Wellness: regular, PERFECTO Skin Integrity/Comment: Jesus 15. Skin intact. Current %PO Good (75-100%) Estimated Nutritional Goals BEE in Kcals: Using Current wt Calories/Kcals/Kg CBW 146.4lb/66.5kg Kcals Calculated 1663-1995kcal (25-30kca/kg) Protein: Using Current wt Protein Calculated 67g (1g/kg) Fluid: ml 1663-1995ml (1ml/kcal) Nutritional Problem 1. Problem Problem Self feeding difficulty related to Etiology cognition/dementia aeb Signs/Symptoms: pt requires total assist, noted forgetful about food Intervention/Recommendation Comments 1. Continue with current diet order. Expected Outcomes/Goals Expected Outcomes/Goals 1. PO intake to meet at least 75% of estimated nutritional needs.
--- NOTE | 2017-04-25 04:44 | Progress Notes ---
DATE: 04/24/2017 SUBJECTIVE: Case was discussed with staff of the patient, reviewed records. The patient has been compliant with his medication. He is starting to show progress. He is sleeping better, eating better. He is compliant with the medication with no side effects, no sedation, no nausea, no extrapyramidal symptoms. Also, working on placement for this patient, and we will continue to work with the patient in group therapy, milieu therapy, adjust medication as needed. JOB# [id number]
[2017-04-25] MEDS: Dextromethorphan/Quinidine 20mg/10mg Cap PO SCH ×2 (09:28→16:42)
[2017-04-25] MEDS: Multivitamin Tab PO SCH (09:29)
--- NOTE | 2017-04-25 11:36 | Internal Medicine Prog Note ---
Internal Medicine Subjective - Subjective Patient is:: awake, confused Per staff patient has:: no adverse event Internal Medicine Objective - Physical Exam Vitals and I&O: Vital Signs Temp 97.8 F 04/25/17 06:26 Pulse 71 04/25/17 06:26 Resp 19 04/25/17 06:26 BP 147/80 04/25/17 06:26 Pulse Ox 97 04/25/17 06:26 Intake & Output 04/24/17 04/25/17 04/25/17 18:59 06:59 18:59 Intake Total 180 Balance 180 Intake: Oral 180 Other: # Voids 2 # Bowel Movements 0 Active Medications: Current Medications Acetaminophen (Tylenol) 650 mg PO Q4HR PRN PRN Reason: Mild Pain / Temp above 100 Stop: 06/16/17 19:54 Al Hydrox/Mg Hydrox/Simethicone (Maalox) 30 ml PO Q4HR PRN PRN Reason: GI DISTRESS Stop: 06/16/17 19:54 Bisacodyl (Dulcolax 10 Mg Supp) 10 mg RC DAILY PRN PRN Reason: Constipation Stop: 06/16/17 20:14 Cholecalciferol (Vitamin D3) 1,000 iu PO DAILY [facility] Stop: 06/17/17 08:59 Last Admin: 04/25/17 09:28 Dose: 1,000 iu Clonazepam (Klonopin) 0.5 mg PO BID LV PRN Reason: Protocol Stop: 06/17/17 08:59 Last Admin: 04/25/17 09:29 Dose: 0.5 mg Cyanocobalamin (Vitamin B12) 1,000 mcg PO DAILY [facility] Stop: 06/17/17 08:59 Last Admin: 04/25/17 09:29 Dose: 1,000 mcg Dextromethorphan/Quinidine (Nuedexta 20mg-10mg) 1 cap PO BID [facility] Stop: 06/17/17 08:59 Last Admin: 04/25/17 09:28 Dose: 1 cap Docusate Sodium (Colace) 100 mg PO BID LV Stop: 06/17/17 08:59 Last Admin: 04/25/17 09:28 Dose: 100 mg Dutasteride (Avodart) 0.5 mg PO DAILY LV PRN Reason: Protocol Stop: 06/17/17 08:59 Last Admin: 04/25/17 09:45 Dose: 0.5 mg Lorazepam (Ativan) 0.5 mg PO Q4HR PRN; Protocol PRN Reason: Anxiety Stop: 05/17/17 19:54 Last Admin: 04/23/17 20:24 Dose: 0.5 mg Magnesium Hydroxide (Milk Of Magnesia) 30 ml PO HS PRN PRN Reason: Constipation Memantine (Namenda) 10 mg PO BID LV Stop: 06/16/17 20:29 Last Admin: 04/25/17 09:28 Dose: 10 mg Multivitamins/Vitamin C (Theragran) 1 tab PO DAILY [facility] Stop: 06/17/17 08:59 Last Admin: 04/25/17 09:29 Dose: 1 tab Olanzapine (Zyprexa) 2.5 mg PO BID LV PRN Reason: Protocol Stop: 06/18/17 08:59 Last Admin: 04/25/17 09:29 Dose: 2.5 mg Senna (Senna) 8.6 mg PO HS VL Stop: 06/16/17 20:59 Last Admin: 04/24/17 20:41 Dose: 8.6 mg Sodium Phosphate (Fleet Enema) 135 ml RC PRN PRN PRN Reason: Constipation Stop: 06/16/17 20:21 Tamsulosin HCl (Flomax) 0.4 mg PO DAILY [facility] Stop: 06/17/17 08:59 Last Admin: 04/25/17 09:28 Dose: 0.4 mg Timolol Maleate (Timoptic 0.5% Ophth Soln) 1 drop EACH EYE BID LV Stop: 06/17/17 08:59 Last Admin: 04/25/17 09:45 Dose: Not Given Valproate Sodium (Depakene) 250 mg PO DAILY LV PRN Reason: Protocol Stop: 06/17/17 08:59 Last Admin: 04/25/17 09:29 Dose: 250 mg Zolpidem Tartrate (Ambien) 5 mg PO HS PRN PRN Reason: Insomnia Stop: 06/16/17 19:54 Last Admin: 04/24/17 20:41 Dose: 5 mg General: weak, demented HEENT: NC/AT, PERRLA, EOMI Neck: Supple, No JVD, No thyromegaly Lungs: CTAB Cardiovascular: RRR, Normal S1, Normal S2, without murmur Abdomen: non-tender, non-distended Extremities: clear Neurological: no change - Procedures Procedures: Procedures Procedure Code Date INTRODUCTION OF SERUM/TOX/VACCINE INTO MUSCLE, PERC APPROACH [id number] 04/16/17 Internal Medicine Assmt/Plan - Assessment Assessment: 1.BPH. 2.CONSTIPATION. 3.DEMENTIA. - Plan Plan: CONTINUE ON CURRENT MEDICATION AND DIET. Nutritional Asmnt/Malnutr-PDOC - Dietary Evaluation Malnutrition Findings (Please click <Entered> for more info): Nutritional Asmnt/Malnutrition Start: 04/20/17 15: 55 Text: Status: Complete Freq: Document 04/20/17 15:55 GSUN (Rec: 04/20/17 16:14 GSUN [email or web address]) Nutritional Asmnt/Malnutrition Patient General Information Nutritional Screening Moderate Risk Screening Diagnosis BPH, dementia, agitation, constipation Pertinent Medical Hx/Surgical Hx Dementia, DJD, constipation, anxiety, psychosis, benign prostatic enlarg Subjective Information 76 year old male from SNF, transfered from [facility]. Pt seen in bed responding to internal stimuli, Chadian speaking however confused, moving extremities. Pt is unable to self feed, but noted with good appetite when assisted. PO intake 100% of meals yesterday. Spoke to NATIONAL SALES DIRECTOR at bedside, NATIONAL SALES DIRECTOR stated pt ate most of breakfast today, no difficulties noted. None to mild fat/muscle wasting noted. Pt is edentulous. Current Diet Order/ Nutrition Support Regular, PERFECTO Pertinent Medications Vitamin D3, Vitamin B12, Colace, MOM, Theragran, Senna, Fleet Enema Pertinent Labs No labs Nutritional Hx/Data Height 1.7 m Height (Calculated Centimeters) 170.2 Current Weight (lbs) 66.406 kg Weight (Calculated Kilograms) 66.4 Weight (Calculated Grams) 91866.9 [place] Body Weight 148 Weight Status Approriate GI Symptoms Usual diet at home Paty Wellness: regular, PERFECTO Skin Integrity/Comment: Jesus 15. Skin intact. Current %PO Good (75-100%) Estimated Nutritional Goals BEE in Kcals: Using Current wt Calories/Kcals/Kg CBW 146.4lb/66.5kg Kcals Calculated 1663-1995kcal (25-30kca/kg) Protein: Using Current wt Protein Calculated 67g (1g/kg) Fluid: ml 1663-1995ml (1ml/kcal) Nutritional Problem 1. Problem Problem Self feeding difficulty related to Etiology cognition/dementia aeb Signs/Symptoms: pt requires total assist, noted forgetful about food Intervention/Recommendation Comments 1. Continue with current diet order. Expected Outcomes/Goals Expected Outcomes/Goals 1. PO intake to meet at least 75% of estimated nutritional needs.
--- NOTE | 2017-04-25 22:58 | Progress Notes ---
DATE: 04/25/2017 SUBJECTIVE: Chart reviewed and the patient interviewed. Also discussed the patient's condition with the staff and reviewed records and labs. The patient is still confused and is still agitated. The patient also still wants to be left alone and he gets irritable and agitated when staff tries to help him with his ADLs. The patient also still has minimal interaction with others. Also resisting care and gets aggressive with the staff when they try to help him with his ADLs. ASSESSMENT: The patient is still psychotic and still can be dangerous to others and gravely disabled. TREATMENT PLAN: Continue adjusting psychotropic medications and work on behavioral modification. Also, continue to work on his irritability and anger, as well as mood swings and continue to follow up. JOB# [id number]
[2017-04-26] MEDS: Dextromethorphan/Quinidine 20mg/10mg Cap PO SCH ×2 (08:56→16:36)
[2017-04-26] MEDS: Multivitamin Tab PO SCH (08:57)
--- NOTE | 2017-04-26 15:26 | Internal Medicine Prog Note ---
Internal Medicine Subjective - Subjective Service Date: 04/26/17 Patient seen and examined:: without staff (HE IS DOING WELL,NO CHANGES.) Patient is:: awake, confused Per staff patient has:: no adverse event Internal Medicine Objective - Results Recent Labs: Laboratory Last Values POC Glucose 85 MG/DL (70 - 105) 04/26/17 06:35 - Physical Exam Vitals and I&O: Vital Signs Temp 98 F 04/26/17 06:58 Pulse 79 04/26/17 06:58 Resp 18 04/26/17 06:58 BP 145/80 04/26/17 06:58 Pulse Ox 97 04/26/17 06:58 Intake & Output 04/25/17 04/26/17 04/26/17 18:59 06:59 18:59 Intake Total 920 Balance 920 Intake: Oral 920 Other: # Voids 3 Active Medications: Current Medications Acetaminophen (Tylenol) 650 mg PO Q4HR PRN PRN Reason: Mild Pain / Temp above 100 Stop: 06/16/17 19:54 Al Hydrox/Mg Hydrox/Simethicone (Maalox) 30 ml PO Q4HR PRN PRN Reason: GI DISTRESS Stop: 06/16/17 19:54 Bisacodyl (Dulcolax 10 Mg Supp) 10 mg RC DAILY PRN PRN Reason: Constipation Stop: 06/16/17 20:14 Cholecalciferol (Vitamin D3) 1,000 iu PO DAILY [facility] Stop: 06/17/17 08:59 Last Admin: 04/26/17 08:57 Dose: 1,000 iu Clonazepam (Klonopin) 0.5 mg PO BID [facility] PRN Reason: Protocol Stop: 06/17/17 08:59 Last Admin: 04/26/17 08:57 Dose: 0.5 mg Cyanocobalamin (Vitamin B12) 1,000 mcg PO DAILY [facility] Stop: 06/17/17 08:59 Last Admin: 04/26/17 08:56 Dose: 1,000 mcg Dextromethorphan/Quinidine (Nuedexta 20mg-10mg) 1 cap PO BID [facility] Stop: 06/17/17 08:59 Last Admin: 04/26/17 08:56 Dose: 1 cap Docusate Sodium (Colace) 100 mg PO BID [facility] Stop: 06/17/17 08:59 Last Admin: 04/26/17 08:57 Dose: 100 mg Dutasteride (Avodart) 0.5 mg PO DAILY [facility] PRN Reason: Protocol Stop: 06/17/17 08:59 Last Admin: 04/26/17 08:59 Dose: 0.5 mg Lorazepam (Ativan) 0.5 mg PO Q4HR PRN; Protocol PRN Reason: Anxiety Stop: 05/17/17 19:54 Last Admin: 04/23/17 20:24 Dose: 0.5 mg Magnesium Hydroxide (Milk Of Magnesia) 30 ml PO HS PRN PRN Reason: Constipation Memantine (Namenda) 10 mg PO BID LV Stop: 06/16/17 20:29 Last Admin: 04/26/17 08:57 Dose: 10 mg Multivitamins/Vitamin C (Theragran) 1 tab PO DAILY [facility] Stop: 06/17/17 08:59 Last Admin: 04/26/17 08:57 Dose: 1 tab Olanzapine (Zyprexa) 2.5 mg PO DAILY [facility] PRN Reason: Protocol Stop: 06/25/17 08:59 Last Admin: 04/26/17 08:57 Dose: 2.5 mg Olanzapine (Zyprexa) 5 mg PO HS LV PRN Reason: Protocol Stop: 06/25/17 20:59 Senna (Senna) 8.6 mg PO HS LV Stop: 06/16/17 20:59 Last Admin: 04/25/17 20:41 Dose: 8.6 mg Sodium Phosphate (Fleet Enema) 135 ml RC PRN PRN PRN Reason: Constipation Stop: 06/16/17 20:21 Tamsulosin HCl (Flomax) 0.4 mg PO DAILY [facility] Stop: 06/17/17 08:59 Last Admin: 04/26/17 08:57 Dose: 0.4 mg Timolol Maleate (Timoptic 0.5% Ophth Soln) 1 drop EACH EYE BID [facility] Stop: 06/17/17 08:59 Last Admin: 04/26/17 08:59 Dose: Not Given Valproate Sodium (Depakene) 250 mg PO DAILY [facility] PRN Reason: Protocol Stop: 06/17/17 08:59 Last Admin: 04/26/17 08:56 Dose: 250 mg Zolpidem Tartrate (Ambien) 5 mg PO HS PRN PRN Reason: Insomnia Stop: 06/16/17 19:54 Last Admin: 04/24/17 20:41 Dose: 5 mg General: weak, demented HEENT: NC/AT, PERRLA, EOMI Neck: Supple, No JVD, No thyromegaly Lungs: CTAB Cardiovascular: RRR, Normal S1, Normal S2, without murmur Abdomen: non-tender, non-distended Extremities: clear Neurological: no change - Procedures Procedures: Procedures Procedure Code Date INTRODUCTION OF SERUM/TOX/VACCINE INTO MUSCLE, PERC APPROACH [id number] 04/16/17 Internal Medicine Assmt/Plan - Assessment Assessment: 1.BPH. 2.CONSTIPATION. 3.DEMENTIA. - Plan Plan: CONTINUE ON CURRENT MEDICATION AND DIET. Nutritional Asmnt/Malnutr-PDOC - Dietary Evaluation Malnutrition Findings (Please click <Entered> for more info): Nutritional Asmnt/Malnutrition Start: 04/20/17 15: 55 Text: Status: Complete Freq: Document 04/20/17 15:55 GSUN (Rec: 04/20/17 16:14 GSUN [id number]) Nutritional Asmnt/Malnutrition Patient General Information Nutritional Screening Moderate Risk Screening Diagnosis BPH, dementia, agitation, constipation Pertinent Medical Hx/Surgical Hx Dementia, DJD, constipation, anxiety, psychosis, benign prostatic enlarg Subjective Information 76 year old male from SNF, transfered from [facility]. Pt seen in bed responding to internal stimuli, Scottish speaking however confused, moving extremities. Pt is unable to self feed, but noted with good appetite when assisted. PO intake 100% of meals yesterday. Spoke to PRIMER WATERPROOFING MACHINE OPERATOR at bedside, PRIMER WATERPROOFING MACHINE OPERATOR stated pt ate most of breakfast today, no difficulties noted. None to mild fat/muscle wasting noted. Pt is edentulous. Current Diet Order/ Nutrition Support Regular, PERFECTO Pertinent Medications Vitamin D3, Vitamin B12, Colace, MOM, Theragran, Senna, Fleet Enema Pertinent Labs No labs Nutritional Hx/Data Height 1.7 m Height (Calculated Centimeters) 170.2 Current Weight (lbs) 66.406 kg Weight (Calculated Kilograms) 66.4 Weight (Calculated Grams) 38216.9 [place] Body Weight 148 Weight Status Approriate GI Symptoms Usual diet at home Paty Wellness: regular, PERFECTO Skin Integrity/Comment: Jesus 15. Skin intact. Current %PO Good (75-100%) Estimated Nutritional Goals BEE in Kcals: Using Current wt Calories/Kcals/Kg CBW 146.4lb/66.5kg Kcals Calculated 1663-1994kcal (25-30kca/kg) Protein: Using Current wt Protein Calculated 67g (1g/kg) Fluid: ml 1663-1995ml (1ml/kcal) Nutritional Problem 1. Problem Problem Self feeding difficulty related to Etiology cognition/dementia aeb Signs/Symptoms: pt requires total assist, noted forgetful about food Intervention/Recommendation Comments 1. Continue with current diet order. Expected Outcomes/Goals Expected Outcomes/Goals 1. PO intake to meet at least 75% of estimated nutritional needs.
--- NOTE | 2017-04-26 22:20 | Progress Notes ---
DATE: 04/26/2017 SUBJECTIVE: Chart reviewed and the patient interviewed. Also discussed the patient's condition with the staff and reviewed records and labs. The patient remains confused and is still anxious and in irritable mood. The patient also is still suspicious and is still paranoid. The patient also is in angry mood and wants to be left alone and has difficulty with his anger when staff tries to redirect him. Otherwise, the patient is compliant with taking his medications and no side effects of medications. ASSESSMENT: The patient is still confused and agitated. TREATMENT PLAN: Continue to monitor his behavior and his condition closely. Also, we will change Zyprexa to be given in a dose of 12.5 mg in the morning and 5 mg at bedtime. Also, continue to work on his irritability and we will continue to follow up. JOB# [id number]
[2017-04-27] MEDS: Multivitamin Tab PO SCH ×2 (09:09→09:50)
[2017-04-27] MEDS: Dextromethorphan/Quinidine 20mg/10mg Cap PO SCH ×3 (09:09→16:38)
--- NOTE | 2017-04-27 19:24 | Internal Medicine Prog Note ---
Internal Medicine Subjective - Subjective Service Date: 04/27/17 Patient seen and examined:: with staff Patient is:: awake, confused Per staff patient has:: no adverse event Internal Medicine Objective - Results Recent Labs: Laboratory Last Values POC Glucose 85 MG/DL (70 - 105) 04/26/17 06:35 - Physical Exam Vitals and I&O: Vital Signs Temp 97.8 F 04/27/17 17:04 Pulse 61 04/27/17 17:04 Resp 18 04/27/17 17:04 BP 130/57 04/27/17 17:04 Pulse Ox 98 04/27/17 17:04 Intake & Output 04/27/17 04/27/17 04/28/17 06:59 18:59 06:59 Intake Total 60 720 Balance 60 720 Weight (lbs) 61.008 kg Intake: Oral 60 720 Other: # Voids 1 4 # Bowel Movements 0 2 Active Medications: Current Medications Acetaminophen (Tylenol) 650 mg PO Q4HR PRN PRN Reason: Mild Pain / Temp above 100 Stop: 06/16/17 19:54 Al Hydrox/Mg Hydrox/Simethicone (Maalox) 30 ml PO Q4HR PRN PRN Reason: GI DISTRESS Stop: 06/16/17 19:54 Bisacodyl (Dulcolax 10 Mg Supp) 10 mg RC DAILY PRN PRN Reason: Constipation Stop: 06/16/17 20:14 Cholecalciferol (Vitamin D3) 1,000 iu PO DAILY [facility] Stop: 06/17/17 08:59 Last Admin: 04/27/17 09:28 Dose: Not Given Clonazepam (Klonopin) 0.5 mg PO BID [facility] PRN Reason: Protocol Stop: 06/17/17 08:59 Last Admin: 04/27/17 16:39 Dose: 0.5 mg Cyanocobalamin (Vitamin B12) 1,000 mcg PO DAILY [facility] Stop: 06/17/17 08:59 Last Admin: 04/27/17 09:28 Dose: Not Given Dextromethorphan/Quinidine (Nuedexta 20mg-10mg) 1 cap PO BID [facility] Stop: 06/17/17 08:59 Last Admin: 04/27/17 16:38 Dose: 1 cap Docusate Sodium (Colace) 100 mg PO BID [facility] Stop: 06/17/17 08:59 Last Admin: 04/27/17 16:39 Dose: 100 mg Dutasteride (Avodart) 0.5 mg PO DAILY LV PRN Reason: Protocol Stop: 06/17/17 08:59 Last Admin: 04/27/17 09:28 Dose: Not Given Lorazepam (Ativan) 0.5 mg PO Q4HR PRN; Protocol PRN Reason: Anxiety Stop: 05/17/17 19:54 Last Admin: 04/23/17 20:24 Dose: 0.5 mg Magnesium Hydroxide (Milk Of Magnesia) 30 ml PO HS PRN PRN Reason: Constipation Memantine (Namenda) 10 mg PO BID LV Stop: 06/16/17 20:29 Last Admin: 04/27/17 16:39 Dose: 10 mg Multivitamins/Vitamin C (Theragran) 1 tab PO DAILY [facility] Stop: 06/17/17 08:59 Last Admin: 04/27/17 09:50 Dose: Not Given Olanzapine (Zyprexa) 2.5 mg PO DAILY LV PRN Reason: Protocol Stop: 06/25/17 08:59 Last Admin: 04/27/17 09:27 Dose: Not Given Olanzapine (Zyprexa) 5 mg PO HS LV PRN Reason: Protocol Stop: 06/25/17 20:59 Last Admin: 04/26/17 21:10 Dose: 5 mg Senna (Senna) 8.6 mg PO HS LV Stop: 06/16/17 20:59 Last Admin: 04/26/17 21:11 Dose: 8.6 mg Sodium Phosphate (Fleet Enema) 135 ml RC PRN PRN PRN Reason: Constipation Stop: 06/16/17 20:21 Tamsulosin HCl (Flomax) 0.4 mg PO DAILY [facility] Stop: 06/17/17 08:59 Last Admin: 04/27/17 09:27 Dose: Not Given Timolol Maleate (Timoptic 0.5% Ophth Soln) 1 drop EACH EYE BID [facility] Stop: 06/17/17 08:59 Last Admin: 04/27/17 17:13 Dose: Not Given Valproate Sodium (Depakene) 250 mg PO DAILY LV PRN Reason: Protocol Stop: 06/17/17 08:59 Last Admin: 04/27/17 09:27 Dose: Not Given Zolpidem Tartrate (Ambien) 5 mg PO HS PRN PRN Reason: Insomnia Stop: 06/16/17 19:54 Last Admin: 04/24/17 20:41 Dose: 5 mg General: weak, demented HEENT: NC/AT, PERRLA, EOMI Neck: Supple, No JVD, No thyromegaly Lungs: CTAB Cardiovascular: RRR, Normal S1, Normal S2, without murmur Abdomen: non-tender, non-distended Extremities: clear Neurological: no change - Procedures Procedures: Procedures Procedure Code Date INTRODUCTION OF SERUM/TOX/VACCINE INTO MUSCLE, PERC APPROACH [id number] 04/16/17 Internal Medicine Assmt/Plan - Assessment Assessment: 1.BPH. 2.CONSTIPATION. 3.DEMENTIA. - Plan Plan: CONTINUE ON CURRENT MEDICATION AND DIET. Nutritional Asmnt/Malnutr-PDOC - Dietary Evaluation Malnutrition Findings (Please click <Entered> for more info): Nutritional Asmnt/Malnutrition Start: 04/20/17 15: 55 Text: Status: Complete Freq: Document 04/20/17 15:55 GSUN (Rec: 04/20/17 16:14 GSUN [email or web address]) Nutritional Asmnt/Malnutrition Patient General Information Nutritional Screening Moderate Risk Screening Diagnosis BPH, dementia, agitation, constipation Pertinent Medical Hx/Surgical Hx Dementia, DJD, constipation, anxiety, psychosis, benign prostatic enlarg Subjective Information 76 year old male from SNF, transfered from [facility]. Pt seen in bed responding to internal stimuli, [place]i speaking however confused, moving extremities. Pt is unable to self feed, but noted with good appetite when assisted. PO intake 100% of meals yesterday. Spoke to LAP CUTTER TRUER OPERATOR at bedside, LAP CUTTER TRUER OPERATOR stated pt ate most of breakfast today, no difficulties noted. None to mild fat/muscle wasting noted. Pt is edentulous. Current Diet Order/ Nutrition Support Regular, PERFECTO Pertinent Medications Vitamin D3, Vitamin B12, Colace, MOM, Theragran, Senna, Fleet Enema Pertinent Labs No labs Nutritional Hx/Data Height 1.7 m Height (Calculated Centimeters) 170.2 Current Weight (lbs) 66.406 kg Weight (Calculated Kilograms) 66.4 Weight (Calculated Grams) 70380.9 [place] Body Weight 148 Weight Status Approriate GI Symptoms Usual diet at home Paty Wellness: regular, PERFECTO Skin Integrity/Comment: Jesus 15. Skin intact. Current %PO Good (75-100%) Estimated Nutritional Goals BEE in Kcals: Using Current wt Calories/Kcals/Kg CBW 146.4lb/66.5kg Kcals Calculated 1663-1995kcal (25-30kca/kg) Protein: Using Current wt Protein Calculated 67g (1g/kg) Fluid: ml 1663-1995ml (1ml/kcal) Nutritional Problem 1. Problem Problem Self feeding difficulty related to Etiology cognition/dementia aeb Signs/Symptoms: pt requires total assist, noted forgetful about food Intervention/Recommendation Comments 1. Continue with current diet order. Expected Outcomes/Goals Expected Outcomes/Goals 1. PO intake to meet at least 75% of estimated nutritional needs.
--- NOTE | 2017-04-28 02:02 | Progress Notes ---
DATE: 04/27/2017 SUBJECTIVE: Chart reviewed and the patient interviewed. Also discussed the patient's condition with the staff and reviewed records and labs. The patient is still anxious and is still in irritable and angry mood. The patient also is still having severe mood swings and he still wants to be left alone and stays by himself in his room. Still rambling in Croatian language and difficult to understand. He also gets aggressive and agitated when staff tries to help him with his ADLs. The patient continued to comply with taking his medications and patient denies any side effects of medications. ASSESSMENT: The patient is still psychotic. TREATMENT PLAN: Continue monitoring his behavior and his condition. Also, continue adjusting psychotropic medications and followup. JOB# [id number]
[2017-04-28] MEDS: Dextromethorphan/Quinidine 20mg/10mg Cap PO SCH ×2 (10:16→16:54)
[2017-04-28] MEDS: Multivitamin Tab PO SCH (10:22)
--- NOTE | 2017-04-28 14:02 | Internal Medicine Prog Note ---
Internal Medicine Subjective - Subjective Service Date: 04/28/17 Patient seen and examined:: without staff Patient is:: awake, confused Per staff patient has:: no adverse event Internal Medicine Objective - Results Recent Labs: Laboratory Last Values POC Glucose 85 MG/DL (70 - 105) 04/26/17 06:35 - Physical Exam Vitals and I&O: Vital Signs Temp 97.8 F 04/27/17 20:00 Pulse 71 04/27/17 20:00 Resp 20 04/27/17 20:00 BP 145/74 04/27/17 20:00 Pulse Ox 97 04/27/17 20:00 Intake & Output 04/27/17 04/28/17 04/28/17 18:59 06:59 18:59 Intake Total 720 100 Balance 720 100 Weight (lbs) 61.008 kg Intake: Oral 720 100 Other: # Voids 4 2 # Bowel Movements 2 0 Active Medications: Current Medications Acetaminophen (Tylenol) 650 mg PO Q4HR PRN PRN Reason: Mild Pain / Temp above 100 Stop: 06/16/17 19:54 Al Hydrox/Mg Hydrox/Simethicone (Maalox) 30 ml PO Q4HR PRN PRN Reason: GI DISTRESS Stop: 06/16/17 19:54 Bisacodyl (Dulcolax 10 Mg Supp) 10 mg RC DAILY PRN PRN Reason: Constipation Stop: 06/16/17 20:14 Cholecalciferol (Vitamin D3) 1,000 iu PO DAILY [facility] Stop: 06/17/17 08:59 Last Admin: 04/28/17 10:22 Dose: Not Given Clonazepam (Klonopin) 0.5 mg PO BID [facility] PRN Reason: Protocol Stop: 06/17/17 08:59 Last Admin: 04/28/17 10:22 Dose: Not Given Cyanocobalamin (Vitamin B12) 1,000 mcg PO DAILY [facility] Stop: 06/17/17 08:59 Last Admin: 04/28/17 10:22 Dose: Not Given Dextromethorphan/Quinidine (Nuedexta 20mg-10mg) 1 cap PO BID [facility] Stop: 06/17/17 08:59 Last Admin: 04/28/17 10:16 Dose: 1 cap Docusate Sodium (Colace) 100 mg PO BID [facility] Stop: 06/17/17 08:59 Last Admin: 04/28/17 10:22 Dose: Not Given Dutasteride (Avodart) 0.5 mg PO DAILY [facility] PRN Reason: Protocol Stop: 06/17/17 08:59 Last Admin: 04/28/17 10:17 Dose: Not Given Lorazepam (Ativan) 0.5 mg PO Q4HR PRN; Protocol PRN Reason: Anxiety Stop: 05/17/17 19:54 Last Admin: 04/23/17 20:24 Dose: 0.5 mg Magnesium Hydroxide (Milk Of Magnesia) 30 ml PO HS PRN PRN Reason: Constipation Memantine (Namenda) 10 mg PO BID [facility] Stop: 06/16/17 20:29 Last Admin: 04/28/17 10:22 Dose: Not Given Multivitamins/Vitamin C (Theragran) 1 tab PO DAILY [facility] Stop: 06/17/17 08:59 Last Admin: 04/28/17 10:22 Dose: Not Given Olanzapine (Zyprexa) 2.5 mg PO DAILY [facility] PRN Reason: Protocol Stop: 06/25/17 08:59 Last Admin: 04/28/17 10:22 Dose: Not Given Olanzapine (Zyprexa) 5 mg PO HS LV PRN Reason: Protocol Stop: 06/25/17 20:59 Last Admin: 04/27/17 20:39 Dose: 5 mg Senna (Senna) 8.6 mg PO HS [facility] Stop: 06/16/17 20:59 Last Admin: 04/27/17 20:39 Dose: 8.6 mg Sodium Phosphate (Fleet Enema) 135 ml RC PRN PRN PRN Reason: Constipation Stop: 06/16/17 20:21 Tamsulosin HCl (Flomax) 0.4 mg PO DAILY [facility] Stop: 06/17/17 08:59 Last Admin: 04/28/17 10:16 Dose: 0.4 mg Timolol Maleate (Timoptic 0.5% Ophth Soln) 1 drop EACH EYE BID [facility] Stop: 06/17/17 08:59 Last Admin: 04/28/17 10:16 Dose: 1 drop Valproate Sodium (Depakene) 250 mg PO DAILY [facility] PRN Reason: Protocol Stop: 06/17/17 08:59 Last Admin: 04/28/17 10:16 Dose: 250 mg Zolpidem Tartrate (Ambien) 5 mg PO HS PRN PRN Reason: Insomnia Stop: 06/16/17 19:54 Last Admin: 04/24/17 20:41 Dose: 5 mg General: weak, demented HEENT: NC/AT, PERRLA, EOMI Neck: Supple, No JVD, No thyromegaly Lungs: CTAB Cardiovascular: RRR, Normal S1, Normal S2, without murmur Abdomen: non-tender, non-distended Extremities: clear Neurological: no change - Procedures Procedures: Procedures Procedure Code Date INTRODUCTION OF SERUM/TOX/VACCINE INTO MUSCLE, PERC APPROACH [id number] 04/16/17 Internal Medicine Assmt/Plan - Assessment Assessment: 1.BPH. 2.CONSTIPATION. 3.DEMENTIA. - Plan Plan: CONTINUE ON CURRENT MEDICATION AND DIET. Nutritional Asmnt/Malnutr-PDOC - Dietary Evaluation Malnutrition Findings (Please click <Entered> for more info): Nutritional Asmnt/Malnutrition Start: 04/20/17 15: 55 Text: Status: Complete Freq: Document 04/20/17 15:55 GSUN (Rec: 04/20/17 16:14 GSUN [id number]) Nutritional Asmnt/Malnutrition Patient General Information Nutritional Screening Moderate Risk Screening Diagnosis BPH, dementia, agitation, constipation Pertinent Medical Hx/Surgical Hx Dementia, DJD, constipation, anxiety, psychosis, benign prostatic enlarg Subjective Information 76 year old male from SNF, transfered from [facility] [place] [place]. Pt seen in bed responding to internal stimuli, Gabonese speaking however confused, moving extremities. Pt is unable to self feed, but noted with good appetite when assisted. PO intake 100% of meals yesterday. Spoke to BATCH UNLOADER at bedside, BATCH UNLOADER stated pt ate most of breakfast today, no difficulties noted. None to mild fat/muscle wasting noted. Pt is edentulous. Current Diet Order/ Nutrition Support Regular, PERFECTO Pertinent Medications Vitamin D3, Vitamin B12, Colace, MOM, Theragran, Senna, Fleet Enema Pertinent Labs No labs Nutritional Hx/Data Height 1.7 m Height (Calculated Centimeters) 170.2 Current Weight (lbs) 66.406 kg Weight (Calculated Kilograms) 66.4 Weight (Calculated Grams) 75244.9 [place] Body Weight 148 Weight Status Approriate GI Symptoms Usual diet at home Paty Wellness: regular, PERFECTO Skin Integrity/Comment: Jesus 15. Skin intact. Current %PO Good (75-100%) Estimated Nutritional Goals BEE in Kcals: Using Current wt Calories/Kcals/Kg CBW 146.4lb/66.5kg Kcals Calculated 1663-1995kcal (25-30kca/kg) Protein: Using Current wt Protein Calculated 67g (1g/kg) Fluid: ml 1663-1995ml (1ml/kcal) Nutritional Problem 1. Problem Problem Self feeding difficulty related to Etiology cognition/dementia aeb Signs/Symptoms: pt requires total assist, noted forgetful about food Intervention/Recommendation Comments 1. Continue with current diet order. Expected Outcomes/Goals Expected Outcomes/Goals 1. PO intake to meet at least 75% of estimated nutritional needs.
--- NOTE | 2017-04-28 20:12 | Progress Notes ---
DATE: 04/28/2017 SUBJECTIVE: The patient was seen, chart reviewed, discussed with staff. The patient is currently in the hospital, confused, anxious, irritable, angry, refusing to speak with me, refusing medication at times. Noted to be withdrawn, irritable, impulsive, unpredictable, requiring a lot of prompting and redirection, prompting to eat, prompting for ADLs. ASSESSMENT: The patient remains symptomatic, irritable, still somewhat suspicious, noted by Dr. Harper to be paranoid, noted to be confused, irritable. PLAN: We will continue to monitor given recent dose adjustments. There are continued safety concerns and we will continue medications at current dose. JOB# [id number]
[2017-04-29] MEDS: Dextromethorphan/Quinidine 20mg/10mg Cap PO SCH ×2 (10:03→17:11)
[2017-04-29] MEDS: Multivitamin Tab PO SCH (10:04)
--- NOTE | 2017-04-29 12:45 | Internal Medicine Prog Note ---
Internal Medicine Subjective - Subjective Service Date: 04/29/17 Patient seen and examined:: without staff Patient is:: awake, confused Per staff patient has:: no adverse event Internal Medicine Objective - Results Recent Labs: Laboratory Last Values POC Glucose 85 MG/DL (70 - 105) 04/26/17 06:35 - Physical Exam Vitals and I&O: Vital Signs Temp 97.6 F 04/29/17 06:37 Pulse 63 04/29/17 06:37 Resp 18 04/29/17 06:37 BP 143/67 04/29/17 06:37 Pulse Ox 96 04/29/17 06:37 Intake & Output 04/28/17 04/29/17 04/29/17 18:59 06:59 18:59 Intake Total 1000 120 Balance 1000 120 Intake: Oral 1000 120 Other: # Voids 3 3 # Bowel Movements 1 Active Medications: Current Medications Acetaminophen (Tylenol) 650 mg PO Q4HR PRN PRN Reason: Mild Pain / Temp above 100 Stop: 06/16/17 19:54 Al Hydrox/Mg Hydrox/Simethicone (Maalox) 30 ml PO Q4HR PRN PRN Reason: GI DISTRESS Stop: 06/16/17 19:54 Bisacodyl (Dulcolax 10 Mg Supp) 10 mg RC DAILY PRN PRN Reason: Constipation Stop: 06/16/17 20:14 Cholecalciferol (Vitamin D3) 1,000 iu PO DAILY [facility] Stop: 06/17/17 08:59 Last Admin: 04/29/17 10:03 Dose: Not Given Clonazepam (Klonopin) 0.5 mg PO BID [facility] PRN Reason: Protocol Stop: 06/17/17 08:59 Last Admin: 04/28/17 16:54 Dose: 0.5 mg Cyanocobalamin (Vitamin B12) 1,000 mcg PO DAILY [facility] Stop: 06/17/17 08:59 Last Admin: 04/29/17 10:03 Dose: Not Given Dextromethorphan/Quinidine (Nuedexta 20mg-10mg) 1 cap PO BID [facility] Stop: 06/17/17 08:59 Last Admin: 04/29/17 10:03 Dose: 1 cap Docusate Sodium (Colace) 100 mg PO BID [facility] Stop: 06/17/17 08:59 Last Admin: 04/29/17 10:03 Dose: 100 mg Dutasteride (Avodart) 0.5 mg PO DAILY [facility] PRN Reason: Protocol Stop: 06/17/17 08:59 Last Admin: 04/29/17 10:03 Dose: 0.5 mg Lorazepam (Ativan) 0.5 mg PO Q4HR PRN; Protocol PRN Reason: Anxiety Stop: 05/17/17 19:54 Last Admin: 04/23/17 20:24 Dose: 0.5 mg Magnesium Hydroxide (Milk Of Magnesia) 30 ml PO HS PRN PRN Reason: Constipation Memantine (Namenda) 10 mg PO BID [facility] Stop: 06/16/17 20:29 Last Admin: 04/29/17 10:04 Dose: Not Given Multivitamins/Vitamin C (Theragran) 1 tab PO DAILY [facility] Stop: 06/17/17 08:59 Last Admin: 04/29/17 10:04 Dose: Not Given Olanzapine (Zyprexa) 2.5 mg PO DAILY [facility] PRN Reason: Protocol Stop: 06/25/17 08:59 Last Admin: 04/29/17 10:04 Dose: Not Given Olanzapine (Zyprexa) 5 mg PO HS LV PRN Reason: Protocol Stop: 06/25/17 20:59 Last Admin: 04/28/17 20:52 Dose: 5 mg Senna (Senna) 8.6 mg PO HS [facility] Stop: 06/16/17 20:59 Last Admin: 04/28/17 20:52 Dose: 8.6 mg Sodium Phosphate (Fleet Enema) 135 ml RC PRN PRN PRN Reason: Constipation Stop: 06/16/17 20:21 Tamsulosin HCl (Flomax) 0.4 mg PO DAILY [facility] Stop: 06/17/17 08:59 Last Admin: 04/29/17 10:03 Dose: 0.4 mg Timolol Maleate (Timoptic 0.5% Ophth Soln) 1 drop EACH EYE BID [facility] Stop: 06/17/17 08:59 Last Admin: 04/29/17 10:02 Dose: 1 drop Valproate Sodium (Depakene) 250 mg PO DAILY [facility] PRN Reason: Protocol Stop: 06/17/17 08:59 Last Admin: 04/29/17 10:02 Dose: 250 mg Zolpidem Tartrate (Ambien) 5 mg PO HS PRN PRN Reason: Insomnia Stop: 06/16/17 19:54 Last Admin: 04/24/17 20:41 Dose: 5 mg General: weak, demented HEENT: NC/AT, PERRLA, EOMI Neck: Supple, No JVD, No thyromegaly Lungs: CTAB Cardiovascular: RRR, Normal S1, Normal S2, without murmur Abdomen: non-tender, non-distended Extremities: clear Neurological: no change - Procedures Procedures: Procedures Procedure Code Date INTRODUCTION OF SERUM/TOX/VACCINE INTO MUSCLE, PERC APPROACH [id number] 04/16/17 Internal Medicine Assmt/Plan - Assessment Assessment: 1.BPH. 2.CONSTIPATION. 3.DEMENTIA. - Plan Plan: CONTINUE ON CURRENT MEDICATION AND DIET. Nutritional Asmnt/Malnutr-PDOC - Dietary Evaluation Malnutrition Findings (Please click <Entered> for more info): Nutritional Asmnt/Malnutrition Start: 04/20/17 15: 55 Text: Status: Complete Freq: Document 04/20/17 15:55 GSUN (Rec: 04/20/17 16:14 GSUN [id number]) Nutritional Asmnt/Malnutrition Patient General Information Nutritional Screening Moderate Risk Screening Diagnosis BPH, dementia, agitation, constipation Pertinent Medical Hx/Surgical Hx Dementia, DJD, constipation, anxiety, psychosis, benign prostatic enlarg Subjective Information 76 year old male from SNF, transfered from [facility]. Pt seen in bed responding to internal stimuli, Latvian speaking however confused, moving extremities. Pt is unable to self feed, but noted with good appetite when assisted. PO intake 100% of meals yesterday. Spoke to COMBINATION TECHNICIAN at bedside, COMBINATION TECHNICIAN stated pt ate most of breakfast today, no difficulties noted. None to mild fat/muscle wasting noted. Pt is edentulous. Current Diet Order/ Nutrition Support Regular, PERFECTO Pertinent Medications Vitamin D3, Vitamin B12, Colace, MOM, Theragran, Senna, Fleet Enema Pertinent Labs No labs Nutritional Hx/Data Height 1.7 m Height (Calculated Centimeters) 170.2 Current Weight (lbs) 66.406 kg Weight (Calculated Kilograms) 66.4 Weight (Calculated Grams) 61728.9 [place] Body Weight 148 Weight Status Approriate GI Symptoms Usual diet at home Paty Wellness: regular, PERFECTO Skin Integrity/Comment: Jesus 15. Skin intact. Current %PO Good (75-100%) Estimated Nutritional Goals BEE in Kcals: Using Current wt Calories/Kcals/Kg CBW 146.4lb/66.5kg Kcals Calculated 1663-1995kcal (25-30kca/kg) Protein: Using Current wt Protein Calculated 67g (1g/kg) Fluid: ml 1663-1995ml (1ml/kcal) Nutritional Problem 1. Problem Problem Self feeding difficulty related to Etiology cognition/dementia aeb Signs/Symptoms: pt requires total assist, noted forgetful about food Intervention/Recommendation Comments 1. Continue with current diet order. Expected Outcomes/Goals Expected Outcomes/Goals 1. PO intake to meet at least 75% of estimated nutritional needs.
--- NOTE | 2017-04-29 21:19 | Progress Notes ---
DATE: 04/29/2017 SUBJECTIVE: The patient is seen, chart reviewed, discussed with staff. The patient remains somewhat confused, still with poor medication compliance, still disoriented, not really talking to me, rambling, mumbling to himself, noted to be irritable, some paranoia noted, angry, needing a lot of redirection and prompting. Medications were reviewed. Labs were reviewed. ASSESSMENT: The patient remains symptomatic, confused, disoriented, agitated, angry, impulsive, unpredictable, and not safe for a lower level of care and at this time also having issues with medication compliance. PLAN: Continue to monitor and titrate medications, given recent dose, increases of medication by Dr. Harper over the past few days. We will hold medications at current dose. Monitor for side effects. JOB# [id number]
[2017-04-30] MEDS: Dextromethorphan/Quinidine 20mg/10mg Cap PO SCH ×3 (09:23→18:03)
[2017-04-30] MEDS: Multivitamin Tab PO SCH (09:23)
--- NOTE | 2017-04-30 11:22 | Progress Notes ---
DATE: 04/30/2017 SUBJECTIVE: Chart reviewed and the patient interviewed. Also discussed the patient's condition with the staff and reviewed records and labs. The patient is still confused and is restless. The patient also is still easily agitated, needs lots of redirections. The patient also still selectively mute and talking to self. He also still gets agitated easily when staff tries to help him with his ADLs. Otherwise, the patient is compliant with taking his medications with no side effects of medications. ASSESSMENT: The patient is still psychotic and agitated. TREATMENT PLAN: We will continue monitoring his behavior and his condition closely. Also, we will increase Zyprexa to 5 mg twice a day and we will continue to follow up closely. Also, working on discharge plans and placement issue. JOB# [id number]
--- NOTE | 2017-04-30 16:14 | Internal Medicine Prog Note ---
Internal Medicine Subjective - Subjective Service Date: 04/30/17 Patient seen and examined:: without staff Patient is:: awake, confused Per staff patient has:: no adverse event Internal Medicine Objective - Results Recent Labs: Laboratory Last Values POC Glucose 85 MG/DL (70 - 105) 04/26/17 06:35 - Physical Exam Vitals and I&O: Vital Signs Temp 97.8 F 04/30/17 14:00 Pulse 55 04/30/17 14:00 Resp 18 04/30/17 14:00 BP 111/69 04/30/17 14:00 Pulse Ox 95 04/30/17 14:00 Intake & Output 04/29/17 04/30/17 04/30/17 18:59 06:59 18:59 Intake Total 600 120 Balance 600 120 Intake: Oral 600 120 Other: # Voids 4 3 # Bowel Movements 1 Active Medications: Current Medications Acetaminophen (Tylenol) 650 mg PO Q4HR PRN PRN Reason: Mild Pain / Temp above 100 Stop: 06/16/17 19:54 Al Hydrox/Mg Hydrox/Simethicone (Maalox) 30 ml PO Q4HR PRN PRN Reason: GI DISTRESS Stop: 06/16/17 19:54 Bisacodyl (Dulcolax 10 Mg Supp) 10 mg RC DAILY PRN PRN Reason: Constipation Stop: 06/16/17 20:14 Cholecalciferol (Vitamin D3) 1,000 iu PO DAILY [facility] Stop: 06/17/17 08:59 Last Admin: 04/30/17 09:23 Dose: 1,000 iu Clonazepam (Klonopin) 0.5 mg PO BID [facility] PRN Reason: Protocol Stop: 06/17/17 08:59 Last Admin: 04/30/17 09:23 Dose: 0.5 mg Cyanocobalamin (Vitamin B12) 1,000 mcg PO DAILY [facility] Stop: 06/17/17 08:59 Last Admin: 04/30/17 09:24 Dose: 1,000 mcg Dextromethorphan/Quinidine (Nuedexta 20mg-10mg) 1 cap PO BID [facility] Stop: 06/17/17 08:59 Last Admin: 04/30/17 09:23 Dose: 1 cap Docusate Sodium (Colace) 100 mg PO BID [facility] Stop: 06/17/17 08:59 Last Admin: 04/30/17 09:24 Dose: 100 mg Dutasteride (Avodart) 0.5 mg PO DAILY [facility] PRN Reason: Protocol Stop: 06/17/17 08:59 Last Admin: 04/30/17 09:24 Dose: 0.5 mg Lorazepam (Ativan) 0.5 mg PO Q4HR PRN; Protocol PRN Reason: Anxiety Stop: 05/17/17 19:54 Last Admin: 04/23/17 20:24 Dose: 0.5 mg Magnesium Hydroxide (Milk Of Magnesia) 30 ml PO HS PRN PRN Reason: Constipation Memantine (Namenda) 10 mg PO BID [facility] Stop: 06/16/17 20:29 Last Admin: 04/30/17 09:25 Dose: 10 mg Multivitamins/Vitamin C (Theragran) 1 tab PO DAILY [facility] Stop: 06/17/17 08:59 Last Admin: 04/30/17 09:23 Dose: 1 tab Olanzapine (Zyprexa) 5 mg PO HS LV PRN Reason: Protocol Stop: 06/25/17 20:59 Last Admin: 04/29/17 20:55 Dose: 5 mg Olanzapine (Zyprexa) 5 mg PO DAILY [facility] PRN Reason: Protocol Stop: 06/25/17 08:59 Last Admin: 04/30/17 09:25 Dose: 5 mg Senna (Senna) 8.6 mg PO HS LV Stop: 06/16/17 20:59 Last Admin: 04/29/17 20:55 Dose: 8.6 mg Sodium Phosphate (Fleet Enema) 135 ml RC PRN PRN PRN Reason: Constipation Stop: 06/16/17 20:21 Tamsulosin HCl (Flomax) 0.4 mg PO DAILY [facility] Stop: 06/17/17 08:59 Last Admin: 04/30/17 09:25 Dose: 0.4 mg Timolol Maleate (Timoptic 0.5% Ophth Soln) 1 drop EACH EYE BID [facility] Stop: 06/17/17 08:59 Last Admin: 04/30/17 09:26 Dose: 1 drop Valproate Sodium (Depakene) 250 mg PO DAILY [facility] PRN Reason: Protocol Stop: 06/17/17 08:59 Last Admin: 04/30/17 09:26 Dose: 250 mg Zolpidem Tartrate (Ambien) 5 mg PO HS PRN PRN Reason: Insomnia Stop: 06/16/17 19:54 Last Admin: 04/30/17 01:14 Dose: 5 mg General: weak, demented HEENT: NC/AT, PERRLA, EOMI Neck: Supple, No JVD, No thyromegaly Lungs: CTAB Cardiovascular: RRR, Normal S1, Normal S2, without murmur Abdomen: non-tender, non-distended Extremities: clear Neurological: no change - Procedures Procedures: Procedures Procedure Code Date INTRODUCTION OF SERUM/TOX/VACCINE INTO MUSCLE, PERC APPROACH [id number] 04/16/17 Internal Medicine Assmt/Plan - Assessment Assessment: 1.BPH. 2.CONSTIPATION. 3.DEMENTIA. - Plan Plan: CONTINUE ON CURRENT MEDICATION AND DIET. Nutritional Asmnt/Malnutr-PDOC - Dietary Evaluation Malnutrition Findings (Please click <Entered> for more info): Nutritional Asmnt/Malnutrition Start: 04/20/17 15: 55 Text: Status: Complete Freq: Document 04/20/17 15:55 GSUN (Rec: 04/20/17 16:14 GSUN [id number]) Nutritional Asmnt/Malnutrition Patient General Information Nutritional Screening Moderate Risk Screening Diagnosis BPH, dementia, agitation, constipation Pertinent Medical Hx/Surgical Hx Dementia, DJD, constipation, anxiety, psychosis, benign prostatic enlarg Subjective Information 76 year old male from SNF, transfered from [facility]. Pt seen in bed responding to internal stimuli, [place] speaking however confused, moving extremities. Pt is unable to self feed, but noted with good appetite when assisted. PO intake 100% of meals yesterday. Spoke to BLOOD BANK TECHNOLOGIST at bedside, BLOOD BANK TECHNOLOGIST stated pt ate most of breakfast today, no difficulties noted. None to mild fat/muscle wasting noted. Pt is edentulous. Current Diet Order/ Nutrition Support Regular, PERFECTO Pertinent Medications Vitamin D3, Vitamin B12, Colace, MOM, Theragran, Senna, Fleet Enema Pertinent Labs No labs Nutritional Hx/Data Height 1.7 m Height (Calculated Centimeters) 170.2 Current Weight (lbs) 66.406 kg Weight (Calculated Kilograms) 66.4 Weight (Calculated Grams) 27927.9 [place] Body Weight 148 Weight Status Approriate GI Symptoms Usual diet at home Paty Wellness: regular, PERFECTO Skin Integrity/Comment: Jesus 15. Skin intact. Current %PO Good (75-100%) Estimated Nutritional Goals BEE in Kcals: Using Current wt Calories/Kcals/Kg CBW 146.4lb/66.5kg Kcals Calculated 1663-1995kcal (25-30kca/kg) Protein: Using Current wt Protein Calculated 67g (1g/kg) Fluid: ml 1663-1995ml (1ml/kcal) Nutritional Problem 1. Problem Problem Self feeding difficulty related to Etiology cognition/dementia aeb Signs/Symptoms: pt requires total assist, noted forgetful about food Intervention/Recommendation Comments 1. Continue with current diet order. Expected Outcomes/Goals Expected Outcomes/Goals 1. PO intake to meet at least 75% of estimated nutritional needs.
[2017-05-01] MEDS: Multivitamin Tab PO SCH (09:45)
[2017-05-01] MEDS: Dextromethorphan/Quinidine 20mg/10mg Cap PO SCH ×2 (09:46→16:59)
--- NOTE | 2017-05-01 22:39 | Discharge Summary ---
DATE OF DISCHARGE: 05/01/2017 FINAL DIAGNOSIS/PRIMARY DIAGNOSIS: Unspecified psychosis. SECONDARY DIAGNOSES: Dementia with psychosis. REASON FOR HOSPITALIZATION: The patient was admitted to the hospital because of increased agitation and irritability. HOSPITAL COURSE: The patient continued to be extremely agitated and irritable. The patient was constantly yelling and constantly saying, "help me, help me." The patient needed a lot of arrangements and a lot of redirections. The patient also continued to work on his irritable and continued to be actively responding to stimuli, and his thought processes were disorganized. The patient also continued to be aggressive. Otherwise, the patient was compliant with taking his medications, and the patient was taking Zyprexa and the dose adjusted to 5 mg twice a day. PHYSICAL EXAMINATION: Showed no major medical problems. AFTER-DISCHARGE PLANS: The patient was discharged from the hospital with plan to continue to follow him in long-term. EXPECTED OUTCOME AFTER DISCHARGE: Fair if the patient continues with his outpatient treatment and follow up with his discharge plans and take his medications. JOB# [id number]
== END 2017-05-01 18:18 | DRG 885 ==
LOC: GERO 17:32
PROVIDERS: ADMIT Psychiatry & Neurology Psychiatry; ATTEND Psychiatry & Neurology Psychiatry
DX: F29 Unspecified psychosis not due to a substance or known physiological condition (principal); F03.91 Unspecified dementia, unspecified severity, with behavioral disturbance; K59.00 Constipation, unspecified; N40.0 Benign prostatic hyperplasia without lower urinary tract symptoms; M19.90 Unspecified osteoarthritis, unspecified site; Z79.899 Other long term (current) drug therapy
CPT/HCPCS: 82948-90; J7051; Z7610